=== PATIENT | female | born 1980 | race Caucasian/White ===

== ENCOUNTER → 2018-06-06 16:08 | Outpatient (CLI) | payer OTHER, SELFPAY | PROVIDERS: Family Provider Family Medicine; PCP Family Medicine; Referring Provider Family Medicine; Visit Provider Family Medicine | DX: R30.0 Dysuria (principal) | CPT/HCPCS: 87086 ==

== ENCOUNTER → 2018-06-07 07:02 | Outpatient (CLI) | payer OTHER, SELFPAY ==
[2018-06-07 10:59] LABS: Anion Gap 6 (5-15); BUN 11 mg/dL (7-18); BUN/Creat Ratio 15.2 RATIO (10-20); Calcium,Total 8.7 mg/dL (8.5-10.1); Chloride 108 mmol/L (98-107); Cholesterol 187 mg/dL (200); Creatinine, Serum 0.73 mg/dL (0.55-1.02); EST Glomerular Filtration Rate 94 mL/min (>60); Est Glom Filt Rate - Afr Amer 114 mL/min (>60); Glucose 77 mg/dL (74-106); High Density Lipoprotein 60 mg/dL; Potassium 4.2 mmol/L (3.5-5.1); Sodium Level 143 mmol/L (136-145); Thyroid Stim Hormone (TSH) 1.05 uIU/mL (0.358-3.74); Triglycerides 64 mg/dL; Very Low Density Lipoprotein 13 mg/dL (5-40)
[2018-06-07 11:01] LABS: Vitamin D,25 Hydroxy 41.1 ng/mL (29.95-100.01)
== END ==
PROVIDERS: Family Provider Family Medicine; PCP Family Medicine; Referring Provider Family Medicine; Visit Provider Family Medicine
DX: Z00.00 Encounter for general adult medical examination without abnormal findings (principal)
CPT/HCPCS: 36415; 80048; 80061; 82306; 84443

== ENCOUNTER → 2018-08-20 12:07 | Outpatient (CLI) | payer OTHER, SELFPAY ==
--- NOTE | 2018-08-20 12:09 | BI_ITS ---
MAMMOGRAPHY - BILATERAL SCREENING REASON FOR EXAM: Female, 38 years old. Routine annual screening examination. PERTINENT HISTORY: Aunt with breast cancer. Bilateral breast implants. TECHNIQUE: Digital bilateral breast giulia (3D mammographic acquisition) in the CC and MLO projections. 2-D mediolateral oblique (MLO) and craniocaudad (CC) views of both breasts were obtained. CAD: Full Field Digital Mammography with Computer Added Detection was performed. COMPARISON: Comparison is made with prior study dated March 31, 2015. FINDINGS: Breast Composition: The breasts are extremely dense, which lowers the sensitivity of mammography. There are no dominant masses or suspicious calcifications. Stable appearance of the bilateral breast implants. No other significant abnormalities are identified. There has been no significant change since the prior study. BI/SCREENING MAMM (CAD), BILAT IMPRESSION: Stable bilateral screening mammogram. Yearly follow-up mammogram recommended. (A) ASSESSMENT CATEGORY: BIRADS Category 2: Benign. A letter regarding these results will be sent to the patient by the facility within 30 days. Approximately 10% of breast cancers are not detected by mammography. A normal mammogram should not delay biopsy of a clinically suspicious abnormality. [id number] Electronically Signed: Valente Soares, at 13:56 EST , Service support ,
== END ==
PROVIDERS: Family Provider Family Medicine; PCP Family Medicine; Visit Provider Family Medicine
DX: Z12.31 Encounter for screening mammogram for malignant neoplasm of breast (principal)
CPT/HCPCS: 77063; 77067

== ENCOUNTER 2019-05-29 11:16 | Emergency (ER) | payer OTHER, SELFPAY ==
[2019-05-29 11:17] VITALS: BP 133/93; PULSE 83; RESP 16; TEMP 36.7; O2SAT 98; BMI 22.1
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
== END 2019-05-29 12:32 | disposition home or self-care (01) ==
PROVIDERS: Emergency Provider Emergency Medicine; Family Provider Family Medicine; PCP Family Medicine
DX: S52.571A Other intraarticular fracture of lower end of right radius, initial encounter for closed fracture (principal); F32.9 Major depressive disorder, single episode, unspecified; Z79.899 Other long term (current) drug therapy; V53.5XXA Driver of pick-up truck or van injured in collision with car, pick-up truck or van in traffic accident, initial encounter; Y93.I9 Activity, other involving external motion; Y92.410 Unspecified street and highway as the place of occurrence of the external cause; Y99.8 Other external cause status
CPT/HCPCS: 29125; 73090; 73110; 99284

== ENCOUNTER → 2019-06-13 07:19 | Outpatient (CLI) | payer OTHER, SELFPAY ==
[2019-05-29 11:17] VITALS: BMI 22.1
[2019-06-13 11:14] LABS: Cholesterol 211 mg/dL (200); High Density Lipoprotein 59 mg/dL; Triglycerides 98 mg/dL; Very Low Density Lipoprotein 20 mg/dL (5-40)
[2019-06-13 11:22] LABS: Hemoglobin A1c 5.5 % (4.2-6.3)
== END ==
PROVIDERS: Family Provider Family Medicine; PCP Family Medicine; Referring Provider Nurse Practitioner Family; Visit Provider Nurse Practitioner Family
DX: Z00.00 Encounter for general adult medical examination without abnormal findings (principal)
CPT/HCPCS: 36415; 80061; 83036

== ENCOUNTER 2019-07-12 14:57 | Emergency (ER) | payer OTHER, SELFPAY ==
[2019-07-12 14:57] VITALS: BP 131/77; PULSE 74; RESP 16; TEMP 36.5; O2SAT 99; BMI 20.5
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
== END 2019-07-12 16:12 | disposition home or self-care (01) ==
LOC: ED 15:42
PROVIDERS: Emergency Provider Emergency Medicine; PCP Family Medicine
DX: S52.501D Unspecified fracture of the lower end of right radius, subsequent encounter for closed fracture with routine healing (principal); W01.0XXD Fall on same level from slipping, tripping and stumbling without subsequent striking against object, subsequent encounter
CPT/HCPCS: 73110; 99282

== ENCOUNTER 2019-08-19 13:00 | Outpatient (RCR) | payer OTHER, SELFPAY ==
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
--- NOTE | 2019-10-25 09:46 | HP.OTDCSUM_ITS ---
It has been my pleasure to treat DEYSI HAGAN under orders from SURI MELCHOR, for the diagnosis of right closed fx wrist /sprain right DRUJ for a total of 6 visit(s). Please see the following information for a summary of their discharge status. % Improvement: 90 Objective/Function: wrist 65/55. right forearm supination 75*. left principal java developer strength 55# a increase from 35#. right lateral pinch 8# a increase from 4#. right tripod pinch 10# a increase from 2# Patient Goals: Regain Mobility, Regain Strength, Use Hand/Wrist/Arm Normally Again Goal:: PT will demo an increase in principal java developer strength by 20# to increase independent with basic occupations of daily living to return pt to PLOF by D/C. Pt will demo an increase in lateral and tripod pinch by 2# to increase pts independent with opening baggies, containers at PLOF by D/C. Goal:: Pt will demo an increase in wrist ROM equal to unaffected wrist to return pt to PLOF with grooming, dressing and home mtg tasks by D/C. pt will demo full right forearm sup/pron to increase pts ind.wtih ADLs and work tasks by d/c. Goal:: Pt will report pain no greater than 1/10 with use of affected hand with BADLs and IADLs by d/c. Plan: D/C with [facility] If there are questions or concerns regarding this patient's occupational therapy, please fell free to call me at [phone]. Thank you for the referral of this patient. Sincerely, Justine Madison, OTR/L, CHT
== END 2019-08-19 19:00 | disposition home or self-care (01) ==
LOC: OT 13:00
PROVIDERS: PCP Family Medicine
DX: S62.101D Fracture of unspecified carpal bone, right wrist, subsequent encounter for fracture with routine healing (principal); S63.591D Other specified sprain of right wrist, subsequent encounter
CPT/HCPCS: 97035; 97110; 97140; 97166; 97530

== ENCOUNTER → 2019-11-24 15:31 | Outpatient (CLI) | payer OTHER, SELFPAY ==
--- NOTE | 2019-11-24 15:32 | BI_ITS ---
MAMMOGRAPHY - BILATERAL SCREENING REASON FOR EXAM: Female, 39 years old. Routine annual screening examination. PERTINENT HISTORY: Aunt with breast cancer. Milky discharge. Bilateral implants. TECHNIQUE: Digital bilateral breast cesar (3D mammographic acquisition) in the CC and MLO projections. 2-D mediolateral oblique (MLO) and craniocaudad (CC) views of both breasts were obtained. CAD: Full Field Digital Mammography with Computer Added Detection was performed. COMPARISON: Comparison is made with prior examination August 20, 2018 and March 31, 2015. FINDINGS: Breast Composition: The breasts are extremely dense, which lowers the sensitivity of mammography. There are no dominant masses or suspicious calcifications. Stable appearance of the bilateral breast implants No other significant abnormalities are identified. There has been no significant change since the prior study. BI/SCREEN MAMM (CAD) W/CESAR BILAT IMPRESSION: Stable bilateral screening mammogram. Yearly follow-up mammogram recommended. (A) ASSESSMENT CATEGORY: BIRADS Category 2: Benign. A letter regarding these results will be sent to the patient by the facility within 30 days. Approximately 10% of breast cancers are not detected by mammography. A normal mammogram should not delay biopsy of a clinically suspicious abnormality. [id number] Electronically Signed: Valente Soares, at 8:11 EDT , Service support ,
== END ==
PROVIDERS: PCP Family Medicine; Referring Provider Family Medicine; Visit Provider Family Medicine
DX: Z12.31 Encounter for screening mammogram for malignant neoplasm of breast (principal)
CPT/HCPCS: 77063; 77067

== ENCOUNTER → 2020-04-05 | Outpatient (CLI) | payer OTHER, SELFPAY | END | disposition home or self-care (01) | LOC: MFPLAB 16:43 | PROVIDERS: PCP Family Medicine; Visit Provider Family Medicine | DX: Z20.828 Contact with and (suspected) exposure to other viral communicable diseases (principal) | CPT/HCPCS: 87635; U0003 ==

== ENCOUNTER → 2020-09-29 12:30 | Outpatient (CLI) | payer OTHER, SELFPAY ==
[2020-09-29 15:10] LABS: Absolute Lymphocyte Count 1.69 X10^3/uL (0.83-4.51); Absolute Neutrophil Count 3.7 X10^3/uL (2.0-7.7); Basophil# 0.02 X10^3/uL; Basophil% 0.3 % (0-1); Eosinophil# 0.03 X10^3/uL; Eosinophils% 0.5 % (0-5); Hematocrit 42.5 % (37-47); Hemoglobin 13.4 g/dL (12.0-15.0); Lymphocyte # 1.69 X10^3/ul (0.83-4.51); Lymphocyte % 29.1 % (19-41); Mean Corp Hgb Conc 31.5 g/dL (32-36); Mean Corpuscular Hgb 30.5 pg (27.0-32.0); Mean Corpuscular Volume 96.8 fL (81-99); Mean Platelet Vol. 11.1 fl (6.2-12.0); Monocyte# 0.39 X10^3/uL; Monocyte% 6.7 % (0-10); NRBC Flagged by Analyzer 0 % (0-5); Neutrophil # 3.67 X10^3/uL (2.7-7.7); Neutrophil % 63.2 % (47-70); Platelet Count 294 K/mm3 (150-450); RBC Distribution Width SD 46.9 fl (35.1-43.9); Red Blood Count 4.39 M/mm3 (4.2-5.4); White Blood Count 5.8 K/mm3 (4.4-11.0)
[2020-09-29 15:32] LABS: Anion Gap 3 (5-15); BUN 15 mg/dL (7-18); BUN/Creat Ratio 24.6 RATIO (10-20); Calcium,Total 9.1 mg/dL (8.5-10.1); Chloride 105 mmol/L (98-107); Creatinine, Serum 0.61 mg/dL (0.55-1.02); EST Glomerular Filtration Rate 114 mL/min (>60); Est Glom Filt Rate - Afr Amer 138 mL/min (>60); Glucose 85 mg/dL (74-106); Potassium 4.3 mmol/L (3.5-5.1); Sodium Level 135 mmol/L (136-145); Thyroid Stim Hormone (TSH) 0.74 uIU/mL (0.358-3.74)
== END ==
PROVIDERS: PCP Family Medicine; Referring Provider Family Medicine; Visit Provider Family Medicine
DX: R53.83 Other fatigue (principal)
CPT/HCPCS: 36415; 80048; 84443; 85025

== ENCOUNTER → 2021-11-23 | Outpatient (CLI) | payer OTHER, SELFPAY ==
[2021-11-23 10:39] LABS: Vitamin D,25 Hydroxy 50.5 ng/mL
[2021-11-23 10:46] LABS: Anion Gap 5 (5-15); BUN 23 mg/dL (7-18); Calcium,Total 8.9 mg/dL (8.5-10.1); Chloride 103 mmol/L (98-107); Cholesterol 180 mg/dL (200); EST Glomerular Filtration Rate 97 mL/min (>60); Est Glom Filt Rate - Afr Amer 118 mL/min (>60); Glucose 89 mg/dL (74-106); High Density Lipoprotein 61 mg/dL; Potassium 3.7 mmol/L (3.5-5.1); Sodium Level 138 mmol/L (136-145); Triglycerides 41 mg/dL; Very Low Density Lipoprotein 8 mg/dL (5-40)
== END | disposition home or self-care (01) ==
LOC: MFPLAB 09:27
PROVIDERS: PCP Family Medicine; Referring Provider Family Medicine; Visit Provider Family Medicine
DX: Z00.00 Encounter for general adult medical examination without abnormal findings (principal)
CPT/HCPCS: 36415; 80048; 80061; 82306

== ENCOUNTER → 2023-07-23 | Outpatient (CLI) | payer OTHER, SELFPAY ==
--- OUTSIDE RECORDS SUMMARY | 2023-07-23 10:01 | XMS RPT_ITS | CCD ---
Author Name Unknown Address [address] [place] [address] Organization [facility] Care Team Providers Care Product Applications Scientist Name Role Phone Janay Linda Unavailable Unavailable Medications Completed/Discontinued Medications Medication Drug Class(es) Dates Sig (Normalized) Sig (Original) Drug Treatment Unknown - unknown (1 source) No information available. Problems Problem Classification Problem Date Documented Da te Episodic/Chronic Unclassified (1 source) No current problems or disability 02-02-2017 Results Test Name Value Interpretation Reference Range Facil ity Plan of Treatment Date Care Activity Detail Author Start: 02-05-2017 End: 02-05-2017 Appointment Appointment [facility] Work Phone: Summary Purpose Family History No Family History Records FoundNo Family History Records Found Advance Directives No Advanced Directives Records FoundNo Advanced Directives Records Found Additional Source Comments INFORMATION SOURCE (unrecogn ized section and content) DATE CREATED AUTHOR AUTHOR'S AUGUSTO ATION 09/01/2019 [facility] FOR RECORDS PERTAINING TO PATIENTS WHO ARE OR HAVE BEEN ENROLLED IN A CHEMICAL DEPENDENCY/SUBSTANCEABUSE PROGRAM, SOME INFORMATION MAY BE OMITTED. This clinical summary was aggregated from multiple sources. Caution should be exercised in using it in the provision of clinical care. This summary normalizes information from multiple sources, and as a consequence, information in this document may materially change the coding, format and clinical context of patient data. In addition, data may be omitted in some cases. CLINICAL DECISIONS SHOULD BE BASED ON THE PRIMARY CLINICAL RECORDS. [employer] provides no warranty or guarantee of the accuracy or completeness of information in this document.
[2023-07-23 14:44] LABS: Anion Gap 4 (5-15); BUN 21 mg/dL (7-18); BUN/Creat Ratio 35.5 RATIO (10-20); Calcium,Total 9.1 mg/dL (8.5-10.1); Chloride 101 mmol/L (98-107); Cholesterol 175 mg/dL (200); Creatinine, Serum 0.59 mg/dL (0.55-1.02); EST Glomerular Filtration Rate 117 mL/min (>60); Est Glom Filt Rate - Afr Amer 141 mL/min (>60); Follicle Stimulating Hormone 9.4 mIU/mL; Glucose 84 mg/dL (74-106); High Density Lipoprotein 72 mg/dL; Luteinizing Hormone 47.2 mIU/mL; Sodium Level 135 mmol/L (136-145); Triglycerides 41 mg/dL; Very Low Density Lipoprotein 8 mg/dL (5-40)
[2023-07-27 18:08] LABS: Estrogen, Total, Serum 567 pg/mL (.)
== END | disposition home or self-care (01) ==
LOC: MFPLAB 09:39
PROVIDERS: PCP Family Medicine; Visit Provider Family Medicine
DX: Z00.00 Encounter for general adult medical examination without abnormal findings (principal); N95.1 Menopausal and female climacteric states
CPT/HCPCS: 36415; 80048; 80061; 82672; 83001; 83002

== ENCOUNTER → 2024-11-04 | Outpatient (CLI) | payer MEDICAID, SELFPAY ==
--- NOTE | 2024-11-04 15:06 | BI_ITS ---
EXAM: SCREENING MAMM (CAD), BILAT DATE: 11/04/2024 CLINICAL HISTORY: F, Age 44 y/o , SCREENING BREAST CANCER RISK ASSESSMENT: Not reported TECHNIQUE: Bilateral screening digital breast tomosynthesis with 2D and 3D images. Computer aided detection. COMPARISON: None available FINDINGS: TISSUE DENSITY: The breast tissue is extremely dense which lowers the sensitivity of mammography. Bilateral Breast Mammographic Findings: Right breast: There is focal asymmetry in the upper-outer right breast. Left breast: No suspicious masses, calcifications or other abnormalities are identified. BI/SCREENING MAMM (CAD), BILAT IMPRESSION: OVERALL FINAL ASSESSMENT: BIRADS 0 Incomplete: Need additional imaging evaluati on and/or prior mammograms for comparison. RECOMMENDATION: Incomplete: Need additional imaging evaluation with diagnostic right breast javed mogram and ultrasound. A letter with findings and recommendations will be mailed to the patient. Reading Location: [id number]
== END | disposition home or self-care (01) ==
LOC: OPBI 15:04
PROVIDERS: PCP Family Medicine; Referring Provider Family Medicine; Visit Provider Family Medicine
DX: Z12.31 Encounter for screening mammogram for malignant neoplasm of breast (principal)
CPT/HCPCS: 77067

== ENCOUNTER → 2024-11-11 | Outpatient (CLI) | payer MEDICAID, SELFPAY ==
--- NOTE | 2024-11-11 08:57 | US_ITS ---
PROCEDURE: BREAST LIMITED UNILATERAL 11/11/2024 REASON FOR EXAM: Palpable lump in the upper-outer quadrant of the right breast. TECHNIQUE: Targeted right breast ultrasound. COMPARISON: Prior mammogram dated November 04, 2024. FINDINGS: Right breast ultrasound was targeted to the lateral upper aspect of the right breast.. The breast tissue appears sonographically normal. No cyst, solid mass, or suspicious shadowing. Dense fibroglandular tissue. No sonographic abnormality is seen. US/Breast Limited Unilateral IMPRESSION: Dense fibroglandular tissue. No sonographic abnormality is seen. Follow-up code: Routine Follow-up Reading Location: [place] [id number]
--- NOTE | 2024-11-11 08:57 | BI_ITS ---
EXAM: DIAG MAMM W/CAD, UNILAT 11/11/2024 CLINICAL HISTORY: F, Age 44 y/o , FOCAL ASYMMETRY TECHNIQUE: Unilateral diagnostic digital breast tomosynthesis with 2D and 3D images. Computer aided detection. COMPARISON: Prior exam(s) dated prior mammogram dated November 04, 2024 and prior sonogram done earlier in the day.. FINDINGS: TISSUE DENSITY: The breast tissue is extremely dense which lowers the sensitivity of mammography. Bilateral Breast Mammographic Findings: No significant masses, calcifications or other abnormalities are identified. Sonographic correlation recommended. BI/DIAG MAMM W/CAD, UNILAT IMPRESSION: OVERALL FINAL ASSESSMENT: BIRADS 0 Incomplete: Need additional imaging evaluati on and/or prior mammograms for comparison.. RECOMMENDATION: Sonographic correlation recommended. A letter with findings and recommendations will be mailed to the patient. Reading Location: [place] [id number]
== END | disposition home or self-care (01) ==
LOC: OPBI 08:55
PROVIDERS: PCP Family Medicine; Referring Provider Family Medicine; Visit Provider Family Medicine
DX: N64.89 Other specified disorders of breast (principal)
CPT/HCPCS: 76642; 77065

== ENCOUNTER → 2025-02-02 | Outpatient (CLI) | payer MEDICAID, SELFPAY ==
--- OUTSIDE RECORDS SUMMARY | 2025-02-02 07:16 | XMS RPT_ITS | CCD ---
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 () Reason For Exam rt wrist pain Report CLINICAL INFORMATION: Right wrist pain. Prior trauma.. Right wrist: COMPARISON: None at this institution. PA, oblique and lateral views demonstrate a subacute appearing transverse fracture of the distal radial metaphysis with mild sclerosis on both sides of the fracture consistent with early healing. There is a longitudinally oriented fracture of the lateral aspect of the distal radial diaphysis without intra-articular extension. The fracture fragments are in near-anatomic position and alignment. The joints are well-maintained. The carpal bones are in normal alignment. IMPRESSION: Healing subacute comminuted fracture of the distal radius with fracture fragments in near-anatomic position and alignment as described.. Report Dictated on Final Dictating Physician: MD ALARCON HARLAN Signed Date and Time: 06/26/2019 3:04 pm Signed by: MD ALARCON HARLAN Transcribed Date and Time: 06/26/2019 3:05 [facility] Vital Signs Date Time Vital Sign Value Performing Clinician Jl palomino 01-27-2025 08:08-0400 Body height 160.[address] Nicko Hatch MD Work Phone: [facility] 01-27-2025 08:08-0400 Body mass index (BMI) [Ratio] 19.6 kg/m2 Dr. Nicko Hatch MD Work Phone: [phone])[phone] [address] 01-27-2025 08:08-0400 Body temperature 97.3 [degF] Dr. Nicko Hatch MD Work Phone: 0(878)[phone] [address] 01-27-2025 08:08-0400 Body weight 50.[address] Nicko Hatch MD Work Phone: 2(081)[phone] [address] 01-27-2025 08:08-0400 Diastolic blood pressure 60 mm[Hg] Dr. Nicko Hatch MD Work Phone: 2(957)[phone] [address] 01-27-2025 08:08-0400 Heart rate 72 /min Dr. Nicko Hatch MD Work Phone: [facility] 01-27-2025 08:08-0400 Respiratory rate 18 /min Dr. Nicko Hatch MD Work Phone: [phone] [place] [address] 01-27-2025 08:08-0400 SaO2% (BldA) [Mass fraction] 97 % Dr. Nicko Hatch MD Work Phone: [facility] 01-27-2025 08:08-0400 Systolic blood pressure 114 mm[Hg] Dr. Nicko Hatch MD Work Phone: [facility] Encounters Encounter Date Encounter Type Care Provider Facility Start: 01-27-2025 End: 01-27-[address] Adele Clements MD -[facility] Work Phone: Start: 01-27-2025 End: 01-27-[address] Nicko Hatch MD Work Phone: [facility] Start: 11-11-2024 End: 11-11-[address] Nicko Hatch MD Work Phone: [facility] Work Phone: Start: 11-11-2024 End: 11-11-[address] Nicko Hatch MD -[facility] Work Phone: Start: 11-11-2024 End: 11-11-2024 ambulatory Nicko Hatch Facility:[facility] Start: 11-04-2024 End: 11-04-[address] Nicko Hatch MD Work Phone: [facility] Work Phone: Start: 11-04-2024 End: 11-04-[address] Nicko Hatch MD -[facility] Work Phone: Start: 11-04-2024 End: 11-04-2024 ambulatory Nicko Hatch Facility:[facility] Start: 07-23-2023 End: 07-23-2023 ambulatory [facility] Work Phone: Start: 07-23-2023 End: 07-23-2023 Patient encounter procedure [facility] Start: 11-23-2021 End: 11-23-2021 Patient encounter procedure [facility] Procedures Date Procedure Procedure Detail Performing Clinician Start: 11-11-[address] Nicko lawson MD Work Phone: Start: 11-11-[address] Nicko Hatch MD Work Phone: Start: 11-04-2024 Screening mammograph y of bilateral breasts Dr. Nicko Hatch MD Work Phone: Plan of Treatment Date Care Activity Detail Author Start: 02-05-2017 End: 02-05-2017 Appointment Appointment [facility] Work Phone: Estrogen [Mass/volum e] in Serum or Plasma [facility] Immunizations Immunization Date Immunization Notes Care Provider Fa cility 07-07-2021 Covid (Moderna) Dr. Nicko singh MD Work Phone: [facility] 09-21-2020 Covid ([employer]) Dr. Nicko Hatch MD Work Phone: [facility] 06-06-2018 tetanus toxoid, redu yair diphtheria toxoid, and acellular pertussis vaccine, adsorbed Dr. Nicko Hatch MD Work Phone: [facility] Payers Date Payer Category Payer Self-pay [id number] 2024 Unknown [id number] 2013 [id number] Unknown [employer] DO NOT USE [id number] Unknown [id number] Unknown [id number] Social History Date Type Detail Facility Start: 07-12-2019 End: 07-12-2019 Tobacco smoking status NHIS Unknown if ever smoked [facility] Start: 1980 Sex Assigned At Female W [facility] Start: 07-12-2019 End: 01-27-2025 Tobacco smoking status NHIS Never smoked tobacco (finding) [facility] Radiology Diagnostic study note 11-11-2024 Note Date & Type Note Facility 11-11-2024 Radiology Diagnostic study note [facility] Services [address] [place] [address] Breast Limited Unilateral MR#: [id number] Acct: [id number] Name: DEYSI HAGAN Rep #: [id number] : 1980 F 44 From: Kevin Soares MD PCP: Dr. Nicko Hatch MD Status: REG C LI Study:Breast Limited Unilateral Date of Exam: 11/11/24 Exam# [id number] Ordering Dr: Nicko Hatch MD PROCEDURE: BREAST LIMITED UNILATERAL 11/11/2024 REASON FOR EXAM: Palpable lump in the upper-outer quadrant of the right breast. TECHNIQUE: Targeted right breast ultrasound. COMPARISON: Prior mammogram dated November 04, 2024. FINDINGS: Right breast ultrasound was targeted to the lateral upper aspect of the right breast.. The breast tissue appears sonographically normal. No cyst, solid mass, or suspicious shadowing. Dense fibroglandular tissue. No sonographic abnormality is seen. US/Breast Limited Unilateral IMPRESSION: Dense fibroglandular tissue. No sonographic abnormality is seen. Follow-up code: Routine Follow-up Reading Location: [place] [address] CC: Dr. 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 [facility] Evaluation note Note Date & Type Note Facility Evaluation note No assessment information availa ble [facility] Work Phone: Evaluation note Note Date & Type Note Facility Evaluation note Diagnosis Onset Date Resolution Encounter for screening for malignant neoplasm of colon noneactive January 27 8:03am Establishing care with new doctor, encounter for noneactive January 27 5 8:03am [facility] Work Phone: Reason for referral (narrative) Note Date & Type Note Facility Reason for referral (narrative) No reason for referral information available [facility] Work Phone: Summary Purpose Family History No Family History Records Found Relationship Condition Age at Onset Recorded Date/T josephine father Hypertension Unknown mother Hypertension Unknown Advance Directives No Advanced Directives Records Found Advance Directive Response Recorded Date/ Time Living Will No July 12 5:11pm Power of Clearing Supervisor No July 12, 2019 5:11pm Advance Directive Response Recorded Date/ Time Living Will No July 12 4:11pm Power of Clearing Supervisor No July 12, 2019 4:11pm Chief Complaint and Reason for Visit Chief Complaint Admit Date SCREENING November 04, 2024 3:04p m ABNORMAL MAMM November 11, 2024 8:13a m Chief Complaint Admit Date SCREENING November 04, 2024 3:04p m ABNORMAL MAMM November 11, 2024 8:13a m [employer]. [facility] - PPW SENT January 27 8:03am Reason for Visit Admit Date Encounter for screening for malignant ne oplasm of colon January 27, 2025 8:03am Establishing care with new doctorgaetano for January 27, 2025 8:03am Additional Source Comments INFORMATION SOURCE (unrecogn ized section and content) DATE CREATED AUTHOR 08/28/2019 [employer] DATE CREATED AUTHOR AUTHOR'S ORGANIZ ATION 09/01/2019 [employer] DATE CREATED AUTHOR AUTHOR'S ORGANIZ ATION [facility] Goals (unrecognized section and content) Goals may be documented in a n alternate sectionGoals may be documented in an alternate sectionGoals may be documented in an alternate sectionGoals may be documented in an alternate sectionGoals may be documented in an alternate section Care Teams (unrecognized sec tion and content) Team Status: Active Member Role Status Dates Dr. Nicko Hatch MD Family Provider Active Dr. Nicko Hatch MD Primary Care Provider Active Team Status: Inactive Member Role Status Dates Dr. Nicko Hatch MD Primary Care Provider, Attending Provider Active Team Status: Active Member Role Status Dates Dr. Nicko Hatch MD Primary Care Provider Active Team Status: Inactive Member Role Status Dates Dr. Nicko Hatch MD Primary Care Provider Active Start: November 04, 2024 End: November 04, 2024 Dr. Nicko Hatch MD Attending Provider Active Start: November 04, 2024 End: November 04, 2024 Dr. Nicko Hatch MD Referring Provider Active Start: November 04, 2024 End: November 04, 2024 Team Status: Active Member Role Status Dates Dr. Nicko Hatch MD Primary Care Provider Active Start: November 11, 2024 Dr. Nicko Hatch MD Attending Provider Active Start: November 11, 2024 Dr. Nicko Hatch MD Referring Provider Active Start: November 11, 2024 Team Status: Inactive Member Role Status Dates Dr. Nicko Hatch MD Primary Care Provider Active Start: November 11, 2024 End: November 11, 2024 Dr. Nicko Hatch MD Attending Provider Active Start: November 11, 2024 End: November 11, 2024 Dr. Nicko Hatch MD Referring Provider Active Start: November 11, 2024 End: November 11, 2024 Team Status: Active Member Role/Relationship Status Dates Dr. Nicko Hatch MD Primary Care Provider Active Team Status: Inactive Member Role/Relationship Status Dates Dr. Nicko Hatch MD Primary Care Provider Active Start: November 04, 2024 End: November 04, 2024 Dr. Nicko Hatch MD Attending Provider Active Start: November 04, 2024 End: November 04, 2024 Dr. Nicko Hatch MD Referring Provider Active Start: November 04, 2024 End: November 04, 2024 Team Status: Inactive Member Role/Relationship Status Dates Dr. Nicko Hatch MD Primary Care Provider Active Start: November 11, 2024 End: November 11, 2024 Dr. Nicko Hatch MD Attending Provider Active Start: November 11, 2024 End: November 11, 2024 Dr. Nicko Hatch MD Referring Provider Active Start: November 11, 2024 End: November 11, 2024 Team Status: Inactive Member Role/Relationship Status Dates Dr. Nicko Hatch MD Primary Care Provider Active Start: January 27, 2025 End: January 27, 2025 Dr. Nicko Hatch MD Referring Provider Active Start: January 27, 2025 End: January 27, 2025 Dr. Adele Clements MD Attending Provider Active Start: January 27, 2025 End: January 27, 2025 FOR RECORDS PERTAINING TO PATIENTS WHO ARE [...] BE BASED ON THE PRIMARY CLINICAL RECORDS. [facility] [employer] [facility] provides no warranty or guarantee of the accuracy or completeness of information in this document.
[2025-02-02 10:28] LABS: Hematocrit 39.4 % (37-47); Hemoglobin 13.2 g/dL (12.0-15.0); Immature Granulocytes Count 0.010 X10^3/uL (0.0-0.0); Mean Corp Hgb Conc 33.5 g/dL (32-36); Mean Corpuscular Volume 96.6 fL (81-99); Mean Platelet Vol. 11.0 fl (6.2-12.0); NRBC Flagged by Analyzer 0 % (0-5); Platelet Count 291 K/mm3 (150-450); RBC Distribution Width CV 13.8 % (11.6-14.6); RBC Distribution Width SD 49.1 fl (35.1-43.9); Red Blood Count 4.08 M/mm3 (4.2-5.4); White Blood Count 6.5 K/mm3 (4.4-11.0)
[2025-02-02 10:57] LABS: AST(SGOT) 30 U/L (<=31); Alanine Aminotransfer ALT/SGPT 21 U/L (<=34); Albumin, Serum 4.2 g/dL (3.5-5.0); Alkaline Phosphatase 77 U/L (35-104); Anion Gap 11 (5-15); BUN 10 mg/dL (4-19); BUN/Creat Ratio 14.1 RATIO (10-20); Calcium,Total 9.4 mg/dL (7.6-11.0); Carbon Dioxide 25.7 mmol/L (21.0-32.0); Chloride 104 mmol/L (98-108); Globulin 2.4 g/dL (2.2-4.2); Glucose 85 mg/dL (70-99); Potassium 4.1 mmol/L (3.3-5.1); Vitamin D,25 Hydroxy 53.6 ng/mL (30-100)
[2025-02-02 12:02] LABS: BETA-HYDROXYBUTYRATE 0.1 mmol/L (0.0-0.3)
== END | disposition home or self-care (01) ==
LOC: MTLAB 07:13
PROVIDERS: PCP Internal Medicine; Referring Provider Internal Medicine; Visit Provider Internal Medicine
DX: F41.9 Anxiety disorder, unspecified (principal); F32.A Depression, unspecified; E16.2 Hypoglycemia, unspecified; M81.0 Age-related osteoporosis without current pathological fracture
CPT/HCPCS: 36415; 80053; 82010; 82306; 83036; 83525; 84305; 84681; 85025

== ENCOUNTER → 2025-02-04 | Outpatient (CLI) | payer MEDICAID, SELFPAY ==
--- NOTE | 2025-02-04 06:56 | BD_ITS ---
PROCEDURE: DEXA BONE DENSITY STUDY 02/04/2025 REASON FOR EXAM: OSTEOPOROSIS F, age 44 y/o . Postmenopausal. TECHNIQUE: DEXA BONE DENSITY STUDY COMPARISON: Prior study dated January 13, 2015. FINDINGS: BMD and T-SCORES Lumbar spine: 0.810 g/cm2, T-score -2.2 Levels: L1 through L4 Change from prior: Loss of 7.3%. Left femoral neck: 0.642 g/cm2, T-score -1.9 Femoral neck comparison data not recommended for monitoring change. Left total hip: 0.724 g/cm2, T-score -1.8 Change from prior: Improvement of 14.8%. Right femoral neck: 0.607 g/cm2, T-score -2.2 Femoral neck comparison data not recommended for monitoring change. Right total hip: 0.683 g/cm2, T-score -2.1 Change from prior: Improvement of 14.9%. The World Health Organization has defined the following categories based on bone density: Normal bone density: T-score equal to or greater than -1.0 Osteopenia: T-score between -1.0 and -2.5 Osteoporosis: T-score equal to or less than -2.5 The patient does meet the pharmacological treatment recommendations for prevention of osteoporosis. BD/Dexa Bone Density Study IMPRESSION: OSTEOPENIA. Recommend follow-up as clinically warranted. Reading Location: [id number]
--- OUTSIDE RECORDS SUMMARY | 2025-02-04 06:56 | XMS RPT_ITS | CCD ---
Author Organization [facility] Care Team Providers Care Environmental Studies Faculty Member Name Role Phone EligioerickodyJanay Unavailable Unavailable Mamie HUERTA, Dr. Maharaj Primary Care Provider Mamie HUERTA, Dr. Maharaj Attending Provider Mamie HUERTA, Dr. Maharaj Referring Provider [phone] Starr HUERTA, Dr. Angulo Attending Provider Nicko Hatch Primary Care Unavailable Nicko Hatch Attending Unavailable Nicko Hatch Referring Unavailable Adele Clements Primary Care Unavailable Adele Clements Attending Unavailable Adele Clements Referring Unavailable Starr, Adele Referring Unavailable Adele Clements Primary Care Unavailable Adele Clements Attending Unavailable Nicko Hatch Referring Unavailable Nicko Hatch Primary Care Unavailable Adele Clements Attending Unavailable Nicko Hatch Primary Care Unavailable Nicko Hatch Attending Unavailable Nicko Hatch Referring Unavailable Medications Current Medications Medication Drug [...] specified disorders of breast] Onset: 11-15-2024 Episodic Osteoporosis (1 source) Age-related osteoporosis without current pathological fracture; Translations: [Age-related osteoporosis without current pathological fracture] Onset: 02-02-2025 Chronic Other screening for suspected conditions (not mental disorders or infectious disease) (2 sources) Patient encounter status; Translations: [Encounter for screening for malignant neoplasm of colon] Onset: 11-11-2024 01-27-2025 Episodic Unclassified (1 source) No current problems or disability 02-02-2017 Results Test Name Value Interpretation Reference Range Facility Beta-Hydroxbytyrateon 2024 BETA-HYDROXYBUT 0.1 mmol/L Normal 0.0-0.3 [facility] Comment on above: Performed By: #### L 100.0100, L501.6901, L500.4050, L501.9985, L506.1001 #### [facility] [address] [place], [address] CBC W/Diff, Automatedon 01-16 Absolute Lymph 1.12 X10 3/uL Normal 0.83-4.51 [facility] Comment on above: Performed By: #### L 100.0100, L501.6901, L500.4050, L501.9985, L506.1001 #### [facility] [address] [place], [address] Absolute Neut 4.4 X10 3/uL Normal 2.0-7.7 [facility] Comment on above: Performed By: #### L 100.0100, L501.6901, L500.4050, L501.9985, L506.1001 #### [facility] [address] [place], [address] Basophils/100 WBC (Bld) 0.6 % Normal 0-1 [facility] Comment on above: Performed By: #### L 100.0100, L501.6901, L500.4050, L501.9985, L506.1001 #### [facility] [address] [place], [address] Eosinophils/100 WBC (Bld) 6.2 % High 0-5 [facility] Comment on above: Performed By: #### L 100.0100, L501.6901, L500.4050, L501.9985, L506.1001 #### [facility] [address] [place], [address] Erythrocyte distribution width (RBC) [Ratio] 13.8 % Normal 11.6-14.6 [facility] Comment on above: Performed By: #### L 100.0100, L501.6901, L500.4050, L501.9985, L506.1001 #### [facility] [address] [place], [address] Hematocrit (Bld) [Volume fraction] 39.4 % Normal 37-47 [facility] Comment on above: Performed By: #### L 100.0100, L501.6901, L500.4050, L501.9985, L506.1001 #### [facility] [address] [place], [address] Hemoglobin (Bld) [Mass/Vol] 13.2 g/dL Normal 12.0-15.0 [facility] Comment on above: Performed By: #### L 100.0100, L501.6901, L500.4050, L501.9985, L506.1001 #### [facility] [address] [place], [address] IG% 0.200 Normal 0.0-0.9 [facility] Comment on above: Result Comment: IG% - Immature Granulocytes (promyelocytes, myelocytes and metamyelocytes) > 1% indicates that a LEFT SHIFT is Present. Performed By: #### L 100.0100, L501.6901, L500.4050, L501.9985, L506.1001 #### [facility] [address] [place], [address] Lymphocytes/100 WBC (Bld) 17.3 % Low 19-41 [facility] Comment on above: Performed By: #### L 100.0100, L501.6901, L500.4050, L501.9985, L506.1001 #### [facility] [address] [place], [address] MCH (RBC) [Entitic mass] 32.4 pg High 27.0-32.0 [facility] Comment on above: Performed By: #### L 100.0100, L501.6901, L500.4050, L501.9985, L506.1001 #### [facility] [address] [place], [address] MCHC (RBC) [Mass/Vol] 33.5 g/dL Normal 32-36 [facility] Comment on above: Performed By: #### L 100.0100, L501.6901, L500.4050, L501.9985, L506.1001 #### [facility] [address] [place], [address] MCV (RBC) [Entitic vol] 96.6 fL Normal 81-99 [facility] Comment on above: Performed By: #### L 100.0100, L501.6901, L500.4050, L501.9985, L506.1001 #### [facility] [address] [place], [address] Monocytes/100 WBC (Bld) 7.9 % Normal 0-10 [facility] Comment on above: Performed By: #### L 100.0100, L501.6901, L500.4050, L501.9985, L506.1001 #### [facility] [address] [place], [address] Neutrophils/100 WBC (Bld) 67.8 % Normal 47-70 [facility] Comment on above: Performed By: #### L 100.0100, L501.6901, L500.4050, L501.9985, L506.1001 #### [facility] [address] [place], [address] Nucleated RBC (Bld) [#/Vol] 0 10*3/uL Normal 0-5 [facility] Comment on above: Performed By: #### L 100.0100, L501.6901, L500.4050, L501.9985, L506.1001 #### [facility] [address] [place], [address] Platelet mean volume (Bld) [Entitic vol] 11.0 fL Normal 6.2-12.0 [facility] Comment on above: Performed By: #### L 100.0100, L501.6901, L500.4050, L501.9985, L506.1001 #### [facility] [address] [place], [address] Platelets (Bld) [#/Vol] 291 10*3/uL Normal 150-450 [facility] Comment on above: Performed By: #### L 100.0100, L501.6901, L500.4050, L501.9985, L506.1001 #### [facility] [address] [place], [address] RBC (Bld) [#/Vol] 4.08 10*6/uL Low 4.2-5.4 [facility] Comment on above: Performed By: #### L 100.0100, L501.6901, L500.4050, L501.9985, L506.1001 #### [facility] [address] [place], [address] RDW SD 49.1 fl High 35.1-43.9 [facility] Comment on above: Performed By: #### L 100.0100, L501.6901, L500.4050, L501.9985, L506.1001 #### [facility] [address] [place], [address] WBC (Bld) [#/Vol] 6.5 10*3/uL Normal 4.4-11.0 [facility] Comment on above: Performed By: #### L 100.0100, L501.6901, L500.4050, L501.9985, L506.1001 #### [facility] [address] [place], [address] Comprehensive Metabolic [facility] 02-02-2025 Albumin [Mass/Vol] 4.2 g/dL Normal 3.5-5.0 [facility] Comment on above: Performed By: #### L 100.0100, L501.6901, L500.4050, L501.9985, L506.1001 #### [facility] [address] [place], [address] Albumin/Globulin [Mass ratio] 1.7 {ratio} Normal 0.9-2.4 [facility] Comment on above: Performed By: #### L 100.0100, L501.6901, L500.4050, L501.9985, L506.1001 #### [facility] [address] [place], [address] ALK PHOS 77 U/L Normal 35-104 [facility] Comment on above: Performed By: #### L 100.0100, L501.6901, L500.4050, L501.9985, L506.1001 #### [facility] [address] [place], [address] ALT [Catalytic activity/Vol] 21 U/L Normal <=34 [facility] Comment on above: Performed By: #### L 100.0100, L501.6901, L500.4050, L501.9985, L506.1001 #### [facility] [address] [place], [address] AST [Catalytic activity/Vol] 30 U/L Normal <=31 [facility] Comment on above: Performed By: #### L 100.0100, L501.6901, L500.4050, L501.9985, L506.1001 #### [facility] [address] [place], [address] Bilirubin [Mass/Vol] 0.49 mg/dL Normal 0.00-1.30 [facility] Comment on above: Performed By: #### L 100.0100, L501.6901, L500.4050, L501.9985, L506.1001 #### [facility] [address] [place], [address] BUN/CRE 14.1 RATIO Normal 10-20 [facility] Comment on above: Performed By: #### L 100.0100, L501.6901, L500.4050, L501.9985, L506.1001 #### [facility] [address] [place], [address] Calcium [Mass/Vol] 9.4 mg/dL Normal 7.6-11.0 [facility] Comment on above: Performed By: #### L 100.0100, L501.6901, L500.4050, L501.9985, L506.1001 #### [facility] [address] [place], [address] Chloride [Moles/Vol] 104 mmol/L Normal 98-108 [facility] Comment on above: Performed By: #### L 100.0100, L501.6901, L500.4050, L501.9985, L506.1001 #### [facility] [address] [place], [address] CO2 [Moles/Vol] 25.7 mmol/L Normal 21.0-32.0 [facility] Comment on above: Performed By: #### L 100.0100, L501.6901, L500.4050, L501.9985, L506.1001 #### [facility] [address] [place], [address] Creatinine [Mass/Vol] 0.68 mg/dL Low 0.70-1.20 [facility] Comment on above: Performed By: #### L 100.0100, L501.6901, L500.4050, L501.9985, L506.1001 #### [facility] [address] [place], [address] GAP 11 Normal 5-15 [facility] Comment on above: Performed By: #### L 100.0100, L501.6901, L500.4050, L501.9985, L506.1001 #### [facility] [address] [place], [address] GFR/1.73 sq M.predicted among non-blacks MDRD (S/P/Bld) [Vol rate/Area] 109 mL/min/{1.73_m2} Normal >60 [facility] Comment on above: Result Comment: mL/m in/1.73m2 CKD-EPI Creatinine Equation (2020) Performed By: #### L 100.0100, L501.6901, L500.4050, L501.9985, L506.1001 #### [facility] [address] [place], [address] Globulin (S) [Mass/Vol] 2.4 g/dL Normal 2.2-4.2 [facility] Comment on above: Performed By: #### L 100.0100, L501.6901, L500.4050, L501.9985, L506.1001 #### [facility] [address] [place], [address] Glucose [Mass/Vol] 85 mg/dL Normal 70-99 [facility] Comment on above: Performed By: #### L 100.0100, L501.6901, L500.4050, L501.9985, L506.1001 #### [facility] [address] [place], [address] Potassium [Moles/Vol] 4.1 mmol/L Normal 3.3-5.1 [facility] Comment on above: Performed By: #### L 100.0100, L501.6901, L500.4050, L501.9985, L506.1001 #### [facility] [address] [place], [address] Sodium [Moles/Vol] 141 mmol/L Normal 133-145 [facility] Comment on above: Performed By: #### L 100.0100, L501.6901, L500.4050, L501.9985, L506.1001 #### [facility] [address] [place], [address] T PROT 6.6 g/dL Normal 5.9-8.4 [facility] Comment on above: Performed By: #### L 100.0100, L501.6901, L500.4050, L501.9985, L506.1001 #### [facility] [address] [place], [address] Urea nitrogen [Mass/Vol] 10 mg/dL Normal 4-19 [facility] Comment on above: Performed By: #### L 100.0100, L501.6901, L500.4050, L501.9985, L506.1001 #### [facility] [address] [place], [address] Hemoglobin A1con 02-02-2025 HbA1c (Bld) [Mass fraction] 4.9 % Normal <=5.6 [facility] Comment on above: Result Comment: Norm al < 5.7 % Prediabetic 5.7 - 6.4 % Diabetic >or= 6.5 % Please note range changes. Performed By: #### L 100.0100, L501.6901, L500.4050, L501.9985, L506.1001 #### [facility] [address] [place], [address] Vitamin D,25 Hydroxyon 02-02 Vitamin D 25-OH 53.6 ng/mL Normal 30-100 [facility] Comment on above: Result Comment: Dunia min D Status Deficiency: <20 ng/mL (50nmol/L) Insufficiency: 20-30 ng/mL (50-75 nmol/L) Sufficiency: 30-100 ng/mL (75-250 nmol/L) Toxicity: >100 ng/mL (>250 nmol/L) Performed By: #### L 100.0100, L501.6901, L500.4050, L501.9985, L506.1001 #### [facility] [address] [place], [address] Internal Medicine Office Vis itoglynn 01-26-2025 Internal Medicine Office Visit [facility] [address] [place] [address] [place] [address] OFFICE VISIT Date of Service: 01/27/25 MR#: [id number] Acct: [id number] Name: DEYSI HAGAN Rep #: [id number] : 1980 Provider: Dr. Adele harley MD Age/Sex: 44/F Location: [facility] Status: Signed Intake Vital Signs 07/12/19 14:57 01/27/25 08:08 Height 5 ft 3 in 5 ft 3 in Weight: 111 lb BMI 19.6 BP 114/60 Blood Pressure Location Lt brachial Position Sitting Respiration 18 Pulse 72 Pulse Source Monitor Temp 97.3 F L Temp Source Temporal Pulse Oximetry (%) 97 Oxygen Delivery Method room air Intake Visit Reasons: [employer] WORK[employer]. 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 EST CARE-PPW SENT Is patient in pain?: No Allergies No Known Allergies Allergy (Verified 01/27/25 08:09) Medications ???Medication ???Instructions ???Recorded ???Confirmed ???Type fluoxetine 20 mg capsule 60 mg PO DAILY 01/27/25 01/27/25 [facility] Medical History (Updated 01/27/25 @ 08:15 by [...] No current occupational status: employed current occupation: [employer] current occupational exposures/hazards: No Smoking Status: Never [...] you feel safe at home: Yes Questionnaire PQH-9 BMS Over the last 2 weeks, how [...] and colleagues, with an educational cole from [employer]. RENAN-7 BMS RENAN-7 Feeling nervous, anxious, or [...] and colleagues, with an educational cole from [employer]. HPI HPI Chief Complaint: NP. JAVID LANDON-PPW SENT Details: DEYSI HAGAN, is a 44 [...] reports s (more content not included)... Normal [facility] Breast Limited Unilateralon 11-11-2024 Breast Limited Unilateral [facility] [address] [facility] [place], [place] [address] Breast Limited Unilateral MR#: [id number] Acct: [id number] Name: DEYSI HAGAN Rep #: [id number] : 1980 F 44 From: Valente rendon MD PCP: Dr. Nicko Hatch MD Status: [facility] Study: Breast Limited Unilateral Date of Exam: Exam# [id number] Ordering Dr: Nicko Hatch MD ADDENDUM by Dr. Valente Soares MD on 11/18/24 at 1752 Addendum for BI-RADS category. BI-RADS category 1. Reading Location: [id number] 11/18/24 1752 Date cc: Dr. Nicko Hatch [...] seen. Follow-up code: Routine Follow-up Reading Location: [place] [address] CC: Dr. Nicko Hatch MD Treasury Representative: Signed Normal [facility] Breast imaging reportOrdered By: Valente Soares on 11-11-2024 Study report [facility] Imaging Services [address] [place], [place] [id number] DIAG MAMM W/CAD, UNILAT MR#: [id number] Acct: [id number] Name: DEYSI HAGAN Rep #: [id number] : 1980 F 44 From: Kevin Soares MD PCP: Dr. Nicko Hatch MD Status: REG [facility] Study:DIAG MAMM W/CAD, UNILAT Date of Exam: 11/11/24 Exam# [id number] Ordering Dr: Nicko Hatch MD EXAM: DIAG [...] be mailed to the patient. Reading Location: [facility] CC: Dr. Nicko Hatch MD ~ Treasury Representative: Signed [facility] DIAG MAMM W/CAD, UNILATon DIAG MAMM W/CAD, UNILAT [facility] Imaging Services [address] [place] [address] DIAG MAMM W/CAD, UNILAT MR#: [id number] Acct: [id number] Name: DEYSI HAGAN Rep #: [id number] : 1980 F 44 From: Valente rendon MD PCP: Dr. Nicko Hatch MD Status: REG CL Study: DIAG MAMM W/CAD, UNILAT Date of Exam: 11/11/24 Exam# [id number] Ordering Dr: Nicko Hatch MD EXAM: DIAG [...] be mailed to the patient. Reading Location: [place] [address] CC: Dr. Nicko Hatch MD Treasury Representative: Signed Normal [facility] Breast imaging reportOrdered By: Alissa Cohen on 11-04-2024 Study report [facility] Imaging Services [address] [place] [address] SCREENING MAMM (CAD), BILAT MR#: [id number] Acct: [id number] Name: DEYSI HAGAN Rep #: [id number] : 1980 F 44 From: Jorge Barnett MD PCP: Dr. Nicko Hatch MD Status: REG [facility] Study:SCREENING MAMM (CAD), BILAT Date of Exa m: 11/04/24 Exam# [id number] Ordering Dr: Nicko Hatch MD EXAM: SCREENING [...] be mailed to the patient. Reading Location: [id number] CC: Dr. Nicko Hatch MD ~ Treasury Representative: Signed [facility] SCREENING MAMM (CAD), BILATo n 11-04-2024 SCREENING MAMM (CAD), [facility] Imaging Services [address] [place], [place] [address] SCREENING MAMM (CAD), BILAT MR#: [id number] Acct: [id number] Name: DEYSI HAGAN Rep #: [id number] : 1980 F 44 From: Alissa Peters i, MD PCP: Dr. Nicko Hatch MD Status: [facility] Study: SCREENING MAMM (CAD), BILAT Date of Exam: 10/17 Exam# [id number] Ordering Dr: Nicko Hatch MD EXAM: SCREENING [...] be mailed to the patient. Reading Location: [id number] CC: Dr. Nicko Hatch MD Treasury Representative: Signed Normal [facility] Basophil percentageOrdered B y: Nicko Hatch on 07-23-2023 Chloride [Moles/Vol] 101 mmol/L 98-107 [facility] Cholesterol [Mass/Vol] 175 mg/dL <200 [facility] Comment on above: <200 mg/dL Desirable 200-240 mg/dL Borderline >240 mg/dL High Risk Glucose [Mass/Vol] 84 mg/dL 74-106 [facility] Potassium [Moles/Vol] 4.0 mmol/L 3.5-5.1 [facility] Sodium [Moles/Vol] 135 mmol/L 136-145 [facility] Triglyceride [Mass/Vol] 41 mg/dL <199 [facility] Comment on above: The drugs N-Acetylcy steine and Metamizole may falsely depress this assay.Serum Triglycerides Reference Interval Normal <150 mg/dL Borderline high 150 - 199 mg/dL High 200 - 499 mg/dL Very High > or = 500 mg/dL Laboratory - Chemistry and C hemistry - challengeOrdered By: Nicko Hatch on 07-23-2023 Cholesterol in HDL [Mass/Vol] 72 mg/dL >40 [facility] Comment on above: The drugs N-Acetylcy steine and Metamizole may falsely depress this assay. Reference Range HDL <40 mg/dL Low HDL Cholesterol HDL >or= 60 mg/dL High HDL Cholesterol Cholesterol in LDL [Mass/Vol] 95 mg/dL 0-130 [facility] CO2 [Moles/Vol] 30.0 mmol/L 21.0-32.0 [facility] Urea nitrogen/Creatinine [Mass ratio] 35.5 mg/mg 10-20 [facility] No Panel InformationOrdered By: Nicko Hatch on 07-23-2023 Estimated GFR (MDRD) Amer 141 mL/min >60 [facility] Comment on above: GFR Calc Estimated GFR (MDRD) Non-Af Amer 117 mL/min >60 [facility] Comment on above: Non- GFR Calc Follicle Stimulating Hormone 9.4 mIU/mL [facility] Comment on above: NORMAL REFERENCE RAN GES FEMALE FOLLICULAR 2.3 - 12.6 mIU/mL MID-CYCLE PEAK 5.2 - 17.5 mIU/mL LUTEAL 1.7 - 12.9 mIU/mL POST-MENOPAUSAL ON MHT 5.9 - 72.8 mIU/mL NOT ON MHT 12.7 - 132.2 mlU/mL MALE 0.7 - 10.8 mIU/mL Luteinizing Hormone 47.2 mIU/mL [facility] Comment on above: NORMAL REFERENCE RAN GES FEMALE FOLLICULAR 1.9 - 26.2 mIU/mL MID-CYCLE PEAK 22.8 - 76.1 mIU/mL LUTEAL 0.6 - 16.6 mIU/mL POST-MENOPAUSAL ON MHT 1.1 - 52.4 mIU/mL NOT ON MHT 8.6 - 61.8 mIU/mL MALE 1.2 - 10.6 mIU/mL VLDL Cholesterol 8 mg/dL 5-40 [facility] Serum or plasma calcium myron urement (mass/volume)Ordered By: Nicko Hatch on 07-23-2023 Calcium [Mass/Vol] 9.1 mg/dL 8.5-10.1 [facility] Serum or plasma creatinine m easurement (mass/volume)Ordered By: Nicko Hatch on 07-23-2023 Creatinine [Mass/Vol] 0.59 mg/dL 0.55-1.02 [facility] Comment on above: The validity of the calculated GFR & GFRAA in patients over 70 years has not been determined. Clinical correlation is essential. Serum or plasma urea nitroge n measurement (mass/volume)Ordered By: Nicko Hatch on 07-23-2023 Urea nitrogen [Mass/Vol] 21 mg/dL 7-18 [facility] Thin prep Papanicolaou smear with manual screeningOrdered By: Nicko Hatch on 07-23-2023 Thin prep Papanicolaou smear with manual screening 4 5-15 [facility] Basophil percentageon 2021 Chloride [Moles/Vol] 103 mmol/L 98-107 [facility] Work Phone: Cholesterol [Mass/Vol] 180 mg/dL <200 [facility] Work Phone: Comment on above: <200 mg/dL Desirable 200-240 mg/dL Borderline >240 mg/dL High Risk Glucose [Mass/Vol] 89 mg/dL 74-106 [facility] Work Phone: Potassium [Moles/Vol] 3.7 mmol/L 3.5-5.1 [facility] Work Phone: Sodium [Moles/Vol] 138 mmol/L 136-145 [facility] Work Phone: Triglyceride [Mass/Vol] 41 mg/dL [facility] Work Phone: Comment on above: The drugs N-Acetylcy steine and Metamizole may falsely depress this assay.Serum Triglycerides Reference Interval Normal <150 mg/dL Borderline high 150 - 199 mg/dL High 200 - 499 mg/dL Very High > or = 500 mg/dL Laboratory - Chemistry and C hemistry - challengeon 11-23-2021 CO2 [Moles/Vol] 30.0 mmol/L 21.0-32.0 [facility] Work Phone: Urea nitrogen/Creatinine [Mass ratio] 33.0 mg/mg 10-20 [facility] Work Phone: No Panel Informationon 11-23 Estimated GFR (MDRD) Amer 118 mL/min >60 [facility] Work Phone: Comment on above: GFR Calc Estimated GFR (MDRD) Non-Af Amer 97 mL/min >60 [facility] Work Phone: Comment on above: Non- GFR Calc Vitamin D 25-Hydroxy 50.5 ng/mL [facility] Work Phone: Comment on above: Vitamin D 25(OH) Sta tus Range Deficiency <20 ng/mL (50nmol/L) Insufficiency 20 - 30 ng/mL (50 - 75 nmol/L) Sufficiency 30 - 100 ng/mL (75 - 250 nmol/L) Toxicity >100 ng/mL (>250 nmol/L) Serum or plasma calcium myron urement (mass/volume)on 11-23-2021 Calcium [Mass/Vol] 8.9 mg/dL 8.5-10.1 [facility] Work Phone: Serum or plasma cholesterol in HDL measurement (mass/volume)on 11-23-2021 Cholesterol in HDL [Mass/Vol] 61 mg/dL [facility] Work Phone: Comment on above: The drugs N-Acetylcy steine and Metamizole may falsely depress this assay. Reference Range HDL <40 mg/dL Low HDL Cholesterol HDL >or= 60 mg/dL High HDL Cholesterol Serum or plasma cholesterol in VLDL measurement (mass/volume)on 11-23-2021 Cholesterol in VLDL [Mass/Vol] 8 mg/dL 5-40 [facility] Work Phone: Serum or plasma creatinine m easurement (mass/volume)on 11-23-2021 Creatinine [Mass/Vol] 0.70 mg/dL 0.55-1.02 [facility] Work Phone: Comment on above: The validity of the calculated GFR & GFRAA in patients over 70 years has not been determined. Clinical correlation is essential. Serum or plasma low density lipoprotein (LDL) cholesterol measurement (mass/volume)on 11-23-2021 Cholesterol in LDL [Mass/Vol] 111 mg/dL 0-130 [facility] Work Phone: Serum or plasma urea nitroge n measurement (mass/volume)on 11-23-2021 Urea nitrogen [Mass/Vol] 23 mg/dL 7-18 [facility] Work Phone: Thin prep Papanicolaou smear with manual screeningon 11-23-2021 Thin prep Papanicolaou smear with manual screening 5 5-15 [facility] Work Phone: MRI Up Ext Joint w/ Contrast Righton 07-08-2019 MRI Up Ext Joint w/ Contrast Right Patient Name: DEYSI HAGAN SELECT [facility] [id number] MRI Exam Date/Time 07/08/2019 13:42:56 EST Exam MRI Up Ext Joint w/ Contrast Right Ordering Physician MD RUIZ, SURI Pineda Accession Number [id number] CPT4 Codes 68217 () Reason For Exam sprain of right [...] Transcribed Date and Time: 07/08/2019 3:18 Normal [facility] RF Arthrogram Aspir Inj Abrahan Jt Righton 07-08-2019 RF Arthrogram Aspir Inj Abrahan Jt Right Patient Name: DEYSI HAGAN Fluoroscopy Exam Date/Time 07/08/2019 13:01:26 EST Exam RF Arthrogram Aspir Inj Abrahan Jt Right Ordering Physician MD MELCHOR DEREK J Accession Number [id number] [facility] Codes 54113 (), 23371 (RF FLUORO GUIDANCE NEEDLE PLACEMENT), 66532 (RF INJ WRIST ARTHRO RT) Reason For [...] Transcribed Date and Time: 07/08/2019 1:05 Normal [facility] CR Wrist Complete 3 Views Lilliam torres 06-26-2019 CR Wrist Complete 3 Views Right Patient Name: DEYSI HAGAN Diagnostic Radiology Exam Date/Time 06/26/2019 10:55:00 EST Exam CR Wrist Complete 3 Views Right Ordering Physician MD RUIZ, SURI Pineda Accession Number [id number] CPT4 Codes 81408 () Reason For Exam rt wrist pain [...] HARLAN Transcribed Date and Time: 06/26/2019 3:05 [facility] Vital Signs Date Time Vital Sign Value Performing Clinician Jl palomino 01-27-2025 08:08-0400 Body height 160.[address] Nicko Hatch MD Work Phone: [facility] 01-27-2025 08:08-0400 Body mass index (BMI) [Ratio] 19.6 kg/m2 Dr. Nicko Hatch MD Work Phone: [facility] 01-27-2025 08:08-0400 Body temperature 97.3 [degF] Dr. Nicko Hatch MD Work Phone: [facility] 01-27-2025 08:08-0400 Body weight 50.[address] Nicko Hatch MD Work Phone: [facility] 01-27-2025 08:08-0400 Diastolic blood pressure 60 mm[Hg] Dr. Nicko Hatch MD Work Phone: [facility] 01-27-2025 08:08-0400 Heart rate 72 /min Dr. Nicko Hatch MD Work Phone: [facility] 01-27-2025 08:08-0400 Respiratory rate 18 /min Dr. Nicko Hatch MD Work Phone: [facility] 01-27-2025 08:08-0400 SaO2% (BldA) [Mass fraction] 97 % Dr. Nicko Hatch MD Work Phone: [facility] 01-27-2025 08:08-0400 Systolic blood pressure 114 mm[Hg] Dr. Nicko Hatch MD Work Phone: [facility] Encounters Encounter Date Encounter Type Care Provider Facility Start: 02-04-2025 ambulatory [facility] Facility :[facility] Start: 02-02-2025 ambulatory [facility] Facility :[facility] Start: 01-27-2025 End: 01-27-[address] Adele Clements MD -[facility] Work Phone: Start: 01-27-2025 End: 01-27-[address] Nicko Hatch MD Work Phone: [facility] Start: 11-11-2024 End: 11-11-[address] Nicko Hatch MD Work Phone: [facility] Work Phone: Start: 11-11-2024 End: 11-11-[address] Nicko Hatch MD -[facility] Work Phone: Start: 11-11-2024 End: 11-11-2024 ambulatory Nicko Hatch Facility:[facility] Start: 11-04-2024 End: 11-04-[address] Nicko Hatch MD Work Phone: [facility] Work Phone: Start: 11-04-2024 End: 11-04-[address] Nicko Hatch MD -[facility] Work Phone: Start: 11-04-2024 End: 11-04-2024 ambulatory Nicko Hatch Facility:[facility] Start: 07-23-2023 End: 07-23-2023 ambulatory [facility] Work Phone: Start: 07-23-2023 End: 07-23-2023 Patient encounter procedure [facility] Start: 11-23-2021 End: 11-23-2021 Patient encounter procedure [facility] Procedures Date Procedure Procedure Detail Performing Clinician Start: 11-11-[address] Nicko lawson MD Work Phone: Start: 11-11-[address] Nicko Hatch MD Work Phone: Start: 11-04-2024 Screening mammograph y of bilateral breasts Dr. Nicko Hatch MD Work Phone: Plan of Treatment Date Care Activity Detail Author Start: 02-05-2017 End: 02-05-2017 Appointment Appointment [facility] kirill Work Phone: Estrogen [Mass/volum e] in Serum or Plasma [facility] Immunizations Immunization Date Immunization Notes Care Provider Fa cility 07-07-2021 Covid (Moderna) Dr. Nicko singh MD Work Phone: [facility] 09-21-2020 Covid ([employer]) Dr. Nicko Hatch MD Work Phone: [facility] 06-06-2018 tetanus toxoid, redu yair diphtheria toxoid, and acellular pertussis vaccine, adsorbed Dr. Nicko Hatch MD Work Phone: [facility] Payers Date Payer Category Payer Self-pay [id number] 2024 Unknown [id number] 2013 Unknown [id number] Unknown [id number] Unknown [employer] DO NOT USE [id number] Unknown [id number] Unknown [id number] Unknown [id number] Unknown [id number] Unknown [id number] Social History Date Type Detail Facility Start: 07-12-2019 End: 07-12-2019 Tobacco smoking status UTIS Unknown if ever smoked [facility] Start: 1980 Sex Assigned At Female [facility] Start: 07-12-2019 End: 01-27-2025 Tobacco smoking status NHIS Never smoked tobacco (finding) [facility] Radiology Diagnostic study note 11-11-2024 Note Date & Type Note Facility 11-11-2024 Radiology Diagnostic study note [facility] Imaging Services [address] [place] [address] Breast Limited Unilateral MR#: [id number] Acct: [id number] Name: DEYSI HAGAN Rep #: [id number] : 1980 F 44 From: Kevin Soares MD PCP: Dr. Nicko Hatch MD Status: DEMETRI GALVIN Study:Breast Limited Unilateral Date of Exam: 11/11/24 Exam# [id number] Ordering Dr: Nicko Hatch MD PROCEDURE: BREAST [...] seen. Follow-up code: Routine Follow-up Reading Location: [place] [address] CC: Dr. Nicko Hatch MD ~ Treasury Representative: Signed [facility] Evaluation note Note Date & Type Note Facility Evaluation note No assessment information availa ble [facility] Work Phone: Evaluation note Note Date & Type Note Facility Evaluation note Diagnosis Onset Date Resolution Encounter for screening for malignant neoplasm of colon noneactive January 27 8:03am Establishing care with new doctor, encounter for noneactive January 27 8:03am [facility][1] Services Work Phone: Reason for referral (narrative) Note Date & Type Note Facility Reason for referral (narrative) No reason for referral information available [facility] Work Phone: Summary Purpose Family History No Family History Records Found Relationship Condition Age at Onset Recorded Date/T josephine father Hypertension Unknown mother Hypertension Unknown Advance Directives No Advanced Directives Records Found Advance Directive Response Recorded Date/ Time Living Will No July 12 5:11pm Power of Caddy Packer No July 12, 2019 5:11pm Advance Directive Response Recorded Date/ Time Living Will No July 12 4:11pm Power of Caddy Packer No July 12, 2019 4:11pm Chief Complaint and Reason for Visit Chief Complaint Admit Date SCREENING November 04, 2024 3:04p m ABNORMAL MAMM November 11, 2024 8:13a m Chief Complaint Admit Date SCREENING November 04, 2024 3:04p m ABNORMAL MAMM November 11, 2024 8:13a m [employer]. [facility] - PPW SENT January 27 8:03am Reason for Visit Admit Date Encounter for screening for malignant ne oplasm of colon January 27, 2025 8:03am Establishing care with new doctorgaetano for January 27, 2025 8:03am Additional Source Comments INFORMATION SOURCE (unrecogn ized section and content) DATE CREATED AUTHOR 08/28/2019 [employer] DATE CREATED AUTHOR AUTHOR'S ORGANIZ ATION 09/01/2019 [facility] [employer] DATE CREATED AUTHOR AUTHOR'S ORGANIZ ATION 02/03/2025 [facility] Goals (unrecognized section and content) Goals may [...] BE BASED ON THE PRIMARY CLINICAL RECORDS. [employer] provides no warranty or guarantee of the accuracy or completeness of information in this document.
== END | disposition home or self-care (01) ==
LOC: OPBD 06:52
PROVIDERS: PCP Internal Medicine; Referring Provider Internal Medicine; Visit Provider Internal Medicine
DX: M81.0 Age-related osteoporosis without current pathological fracture (principal)
CPT/HCPCS: 77080

== ENCOUNTER 2025-02-08 19:59 | Emergency (ER) | payer MEDICAID, SELFPAY ==
[2025-02-08 20:01] VITALS: BP 156/102; PULSE 80; RESP 19; TEMP 36.6; O2SAT 100
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
--- OUTSIDE RECORDS SUMMARY | 2025-02-08 20:44 | XMS RPT_ITS | CCD ---
Author Organization [facility] Care Team Providers Care Cab Station Attendant Name Role Phone Janay Linda Unavailable Unavailable Mamie HUERTA, Dr. Maharaj Primary Care Provider [phone] Mamie HUERTA, Dr. Maharaj Attending Provider [phone] Mamie HUERTA, Dr. Maharaj Referring Provider Starr HUERTA, Dr. Angulo Attending Provider Starr HUERTA, Dr. Angulo Primary Care Provider Starr HUERTA, Dr. Angulo Referring Provider Nicko Hatch Primary Care Unavailable Hatch, Nicko Attending Unavailable Hatch, Nicko Referring Unavailable Hatch, Nicko Primary Care Unavailable Hatch, Nicko Attending Unavailable Hatch, Nicko Referring Unavailable StarrAdele flower Primary Care Unavailable Adele Clements Attending Unavailable Starr, Adele Referring Unavailable Hatch, Nicko Referring Unavailable Hatch, Nicko Primary Care Unavailable Hinckley, Adele Attending Unavailable HinckleyFrancie floweria Referring Unavailable StarrAdele flower Primary Care Unavailable Adele Clements Attending Unavailable Medications Current Medications Medication Drug Class(es) Dates Sig (Normalized) Sig (Original) FLUoxetine 20 mg oral capsule (8 sources) Serotonin Reuptake Inhibitor Start: 01-27-2025 take [...] Date Documented Da te Episodic/Chronic Administrative/social admission (2 sources) First encounter by subject; Translations: [Persons encountering health services in other specified circumstances] 01-27-2025 Episodic Anxiety disorders (4 sources) Mixed anxiety and depressive disorder; Translations: [Anxiety disorder, unspecified] Onset: 02-04-2025 01-27-2025 Chronic Nonmalignant breast conditions (1 source) Other specified disorders of breast; Translations: [Other specified disorders of breast] Onset: 11-15-2024 Episodic Osteoporosis (2 sources) Osteoporosis; Translations: [Age-related osteoporosis without current pathological fracture] Onset: 02-04-2025 01-27-2025 Chronic Other endocrine disorders (1 source) Hypoglycemia; Translations: [Hypoglycemia, unspecified] 01-27-2025 Chronic Other screening for suspected conditions (not mental disorders or infectious disease) (3 sources) Patient encounter status; Translations: [Encounter for screening for malignant neoplasm of colon] Onset: 11-11-2024 01-27-2025 Episodic Residual codes; unclassified (1 source) Medication refused; Translations: [Immunization not carried out because of patient refusal] 01-27-2025 Episodic Unclassified (1 source) No current problems or disability 02-02-2017 Unclassified (1 source) Encounter for screening for malignant neoplasm of colon Unclassified (2 sources) Z12.11 - Encounter for screening for malignant neoplasm of colon Results Test Name Value Interpretation Reference Range Facility C-Peptideon 02-04-2025 C PEPTIDE 1.5 ng/mL Normal 1.1-4.4 [facility] Comment on above: Result Comment: C-Pe ptide reference interval is for fasting patients. Performed By: #### L 506.1001, L3100.7750, L100.0100, L501.6901, L3410.9992, L3300.3500, L500.4050, L501.9985, L3400.1350 #### [facility] [address] [place], [address] Dexa Bone Density Studyon Dexa Bone Density Study [facility] Imaging Services [address] [place] [address] Dexa Bone Density Study MR#: [id number] Acct: [id number] Name: DEYSI HAGAN Rep #: [id number] : 1980 F 44 From: Valente rendon MD PCP: Dr. Adele Clements MD Status: REG CLI Study: Dexa Bone Density Study Date of Exam: 02/04/25 Exam# [id number] Ordering Dr: Adele Clements MD PROCEDURE: DEXA BONE DENSITY STUDY 02/04/2025 REASON FOR EXAM: OSTEOPOROSIS F, age 44 y/o . Postmenopausal. TECHNIQUE: DEXA BONE DENSITY STUDY COMPARISON: Prior study dated January 13, 2015. FINDINGS: BMD and T-SCORES Lumbar spine: 0.810 g/cm2, T-score -2.2 Levels: L1 through L4 Change from prior: Loss of 7.3%. Left femoral neck: 0.642 g/cm2, T-score -1.9 Femoral neck comparison data not recommended for monitoring change. Left total hip: 0.724 g/cm2, T-score -1.8 Change from prior: Improvement of 14.8%. Right femoral neck: 0.607 g/cm2, T-score -2.2 Femoral neck comparison data not recommended for monitoring change. Right total hip: 0.683 g/cm2, T-score -2.1 Change from prior: Improvement of 14.9%. The World Health Organization has defined the following categories based on bone density: Normal bone density: T-score equal to or greater than -1.0 Osteopenia: T-score between -1.0 and -2.5 Osteoporosis: T-score equal to or less than -2.5 The patient does meet the pharmacological treatment recommendations for prevention of osteoporosis. BD/Dexa Bone Density Study IMPRESSION: OSTEOPENIA. Recommend follow-up as clinically warranted. Reading Location: [id number] CC: Dr. Adele Clements MD Cnc Manager: Signed Normal [facility] Insulin Levelon 02-04-2025 INSULIN,FASTING 4.5 uIU/mL Normal 2.6-24.9 [facility] Comment on above: Result Comment: Perf ormed at: [address] [id number] English Adjunct Faculty: Nahum Chandra PhD, Phone: [phone] Performed at: [address] [id number] English Adjunct Faculty: Paul Leo MD, Phone: [phone] Performed By: #### L 506.1001, L3100.7750, L100.0100, L501.6901, L3410.9992, L3300.3500, L500.4050, L501.9985, L3400.1350 #### [facility] [address] [place], [address] Insulin Like Growth Factoron 02-04-2025 SOMATOMEDIN C 165 ng/mL Normal 70-225 [facility] Comment on above: Order Comment: N Performed By: #### L 506.1001, L3100.7750, L100.0100, L501.6901, L3410.9992, L3300.3500, L500.4050, L501.9985, L3400.1350 #### [facility] [address] [place], [address] L3410.9992on 02-04-2025 [facility] COM[facility] Normal . [facility] Comment on above: Order Comment: UPDAT ED SPECIMEN REQUIREMENTS, SERUM/FRZ. [id number], PROINSULIN [id number] proinsulin SERUM/FRZ Result Comment: Test Ordered: [id number] Proinsulin Proinsulin 3.0 pmol/L Reference Range: 0.0-10.0 Performed at: [address] [id number] English Adjunct Faculty: Paul Leo MD, Phone: [phone] Performed at: [address] [id number] English Adjunct Faculty: Nahum Chandra PhD, Phone: [phone] Performed By: #### L 506.1001, L3100.7750, L100.0100, L501.6901, L3410.9992, L3300.3500, L500.4050, L501.9985, L3400.1350 #### [facility] [address] [place], [place], [id number] Absolute lymphocyte countOrd ered By: Adele Clements on 02-02-2025 Lymphocytes Auto (Unsp spec) [#/Vol] 1.12 10*3/uL 0.83-4.51 [facility] Absolute neutrophil countOrd ered By: Adelescott Clements on 02-02-2025 Neutrophils (Bld) [#/Vol] 4.4 10*3/uL 2.0-7.7 [facility] Anion gap in Serum or Plasma Ordered By: Adele Clements on 02-02-2025 Anion gap [Moles/Vol] 11 mmol/L 5-15 [facility] Automated lymphocyte count a s percentage of total leukocytesOrdered By: Adele Clements on 02-02-2025 Lymphocytes/100 WBC Auto (Unsp spec) 17.3 % Low 19-41 [facility] BUN/creatinine ratioOrdered By: Adele Clements on 02-02-2025 Urea nitrogen/Creatinine [Mass ratio] 14.1 mg/mg 10-20 [facility] Basophil percentageOrdered B y: Adele Clements on 02-02-2025 Basophils/100 WBC (Bld) 0.6 % 0-1 [facility] Beta-Hydroxbytyrateon 2024 BETA-HYDROXYBUT 0.1 mmol/L Normal 0.0-0.3 [facility] Comment on above: Performed By: #### L 506.1001, L3100.7750, L100.0100, L501.6901, L3410.9992, L3300.3500, L500.4050, L501.9985, L3400.1350 #### [facility] [address] [place], [place], [id number] Beta-hydroxybutyrateOrdered By: Adele Clements on 08-18-2025 Beta hydroxybutyrate [Mass/Vol] 0.1 mmol/L 0.0-0.3 [facility] Bilirubin, totalOrdered By: Adele Clements on 02-02-2025 Bilirubin [Mass/Vol] 0.49 mg/dL 0.00-1.30 [facility] CBC W/Diff, Automatedon 01-16 Absolute Lymph 1.12 X10 3/uL Normal 0.83-4.51 [facility] Comment on above: Performed By: #### L 506.1001, L3100.7750, L100.0100, L501.6901, L3410.9992, L3300.3500, L500.4050, L501.9985, L3400.1350 #### [facility] [address] [place], [address] Absolute Neut 4.4 X10 3/uL Normal 2.0-7.7 [facility] Comment on above: Performed By: #### L 506.1001, L3100.7750, L100.0100, L501.6901, L3410.9992, L3300.3500, L500.4050, L501.9985, L3400.1350 #### [facility] [address] [place], [address] Basophils/100 WBC (Bld) 0.6 % Normal 0-1 [facility] Comment on above: Performed By: #### L 506.1001, L3100.7750, L100.0100, L501.6901, L3410.9992, L3300.3500, L500.4050, L501.9985, L3400.1350 #### [facility] [address] [place], [address] Eosinophils/100 WBC (Bld) 6.2 % High 0-5 [facility] Comment on above: Performed By: #### L 506.1001, L3100.7750, L100.0100, L501.6901, L3410.9992, L3300.3500, L500.4050, L501.9985, L3400.1350 #### [facility] [address] [place], [place], [id number] ([phone]) Erythrocyte distribution width (RBC) [Ratio] 13.8 % Normal 11.6-14.6 [facility] Comment on above: Performed By: #### L 506.1001, L3100.7750, L100.0100, L501.6901, L3410.9992, L3300.3500, L500.4050, L501.9985, L3400.1350 #### [facility] [address] [place], [address] Hematocrit (Bld) [Volume fraction] 39.4 % Normal 37-47 [facility] Comment on above: Performed By: #### L 506.1001, L3100.7750, L100.0100, L501.6901, L3410.9992, L3300.3500, L500.4050, L501.9985, L3400.1350 #### [facility] [address] [place], [place], [id number] Hemoglobin (Bld) [Mass/Vol] 13.2 g/dL Normal 12.0-15.0 [facility] Comment on above: Performed By: #### L 506.1001, L3100.7750, L100.0100, L501.6901, L3410.9992, L3300.3500, L500.4050, L501.9985, L3400.1350 #### [facility] [address] [place], [address] IG% 0.200 Normal 0.0-0.9 [facility] Comment on above: Result Comment: IG% - Immature Granulocytes (promyelocytes, myelocytes and metamyelocytes) > 1% indicates that a LEFT SHIFT is Present. Performed By: #### L 506.1001, L3100.7750, L100.0100, L501.6901, L3410.9992, L3300.3500, L500.4050, L501.9985, L3400.1350 #### [facility] [address] [place], [address] Lymphocytes/100 WBC (Bld) 17.3 % Low 19-41 [facility] Comment on above: Performed By: #### L 506.1001, L3100.7750, L100.0100, L501.6901, L3410.9992, L3300.3500, L500.4050, L501.9985, L3400.1350 #### [facility] [address] [place], [address] MCH (RBC) [Entitic mass] 32.4 pg High 27.0-32.0 [facility] Comment on above: Performed By: #### L 506.1001, L3100.7750, L100.0100, L501.6901, L3410.9992, L3300.3500, L500.4050, L501.9985, L3400.1350 #### [facility] [address] [place], [address] MCHC (RBC) [Mass/Vol] 33.5 g/dL Normal 32-36 [facility] Comment on above: Performed By: #### L 506.1001, L3100.7750, L100.0100, L501.6901, L3410.9992, L3300.3500, L500.4050, L501.9985, L3400.1350 #### [facility] [address] [place], [address] MCV (RBC) [Entitic vol] 96.6 fL Normal 81-99 [facility] Comment on above: Performed By: #### L 506.1001, L3100.7750, L100.0100, L501.6901, L3410.9992, L3300.3500, L500.4050, L501.9985, L3400.1350 #### [facility] [address] [place], [address] Monocytes/100 WBC (Bld) 7.9 % Normal 0-10 [facility] Comment on above: Performed By: #### L 506.1001, L3100.7750, L100.0100, L501.6901, L3410.9992, L3300.3500, L500.4050, L501.9985, L3400.1350 #### [facility] [address] [place], [address] Neutrophils/100 WBC (Bld) 67.8 % Normal 47-70 [facility] Comment on above: Performed By: #### L 506.1001, L3100.7750, L100.0100, L501.6901, L3410.9992, L3300.3500, L500.4050, L501.9985, L3400.1350 #### [facility] [address] [place], [address] Nucleated RBC (Bld) [#/Vol] 0 10*3/uL Normal 0-5 [facility] Comment on above: Performed By: #### L 506.1001, L3100.7750, L100.0100, L501.6901, L3410.9992, L3300.3500, L500.4050, L501.9985, L3400.1350 #### [facility] [address] [place], [address] Platelet mean volume (Bld) [Entitic vol] 11.0 fL Normal 6.2-12.0 [facility] Comment on above: Performed By: #### L 506.1001, L3100.7750, L100.0100, L501.6901, L3410.9992, L3300.3500, L500.4050, L501.9985, L3400.1350 #### [facility] [address] [place], [address] Platelets (Bld) [#/Vol] 291 10*3/uL Normal 150-450 [facility] Comment on above: Performed By: #### L 506.1001, L3100.7750, L100.0100, L501.6901, L3410.9992, L3300.3500, L500.4050, L501.9985, L3400.1350 #### [facility] [address] [place], [address] RBC (Bld) [#/Vol] 4.08 10*6/uL Low 4.2-5.4 [facility] Comment on above: Performed By: #### L 506.1001, L3100.7750, L100.0100, L501.6901, L3410.9992, L3300.3500, L500.4050, L501.9985, L3400.1350 #### [facility] [address] [place], [address] RDW SD 49.1 fl High 35.1-43.9 [facility] Comment on above: Performed By: #### L 506.1001, L3100.7750, L100.0100, L501.6901, L3410.9992, L3300.3500, L500.4050, L501.9985, L3400.1350 #### [facility] [address] [place], [address] WBC (Bld) [#/Vol] 6.5 10*3/uL Normal 4.4-11.0 [facility] Comment on above: Performed By: #### L 506.1001, L3100.7750, L100.0100, L501.6901, L3410.9992, L3300.3500, L500.4050, L501.9985, L3400.1350 #### [facility] [address] [place], [address] Carbon dioxide, total [Moles /volume] in Central venous bloodOrdered By: Adele Clements on 02-02-2025 CO2 [Moles/Vol] 25.7 mmol/L 21.0-32.0 [facility] Chloride assayOrdered By: Paul Clements on 02-02-2025 Chloride [Moles/Vol] 104 mmol/L 98-108 [facility] Comprehensive Metabolic Prof ilon 02-02-2025 Albumin [Mass/Vol] 4.2 g/dL Normal 3.5-5.0 [facility] Comment on above: Performed By: #### L 506.1001, L3100.7750, L100.0100, L501.6901, L3410.9992, L3300.3500, L500.4050, L501.9985, L3400.1350 #### [facility] [address] [place], [address] Albumin/Globulin [Mass ratio] 1.7 {ratio} Normal 0.9-2.4 [facility] Comment on above: Performed By: #### L 506.1001, L3100.7750, L100.0100, L501.6901, L3410.9992, L3300.3500, L500.4050, L501.9985, L3400.1350 #### [facility] [address] [place], [address] ALK PHOS 77 U/L Normal 35-104 [facility] Comment on above: Performed By: #### L 506.1001, L3100.7750, L100.0100, L501.6901, L3410.9992, L3300.3500, L500.4050, L501.9985, L3400.1350 #### [facility] [address] [place], [address] ALT [Catalytic activity/Vol] 21 U/L Normal <=34 [facility] Comment on above: Performed By: #### L 506.1001, L3100.7750, L100.0100, L501.6901, L3410.9992, L3300.3500, L500.4050, L501.9985, L3400.1350 #### [facility] [address] [place], [place], [id number] AST [Catalytic activity/Vol] 30 U/L Normal <=31 [facility] Comment on above: Performed By: #### L 506.1001, L3100.7750, L100.0100, L501.6901, L3410.9992, L3300.3500, L500.4050, L501.9985, L3400.1350 #### [facility] [address] [place], [place], [id number] Bilirubin [Mass/Vol] 0.49 mg/dL Normal 0.00-1.30 [facility] Comment on above: Performed By: #### L 506.1001, L3100.7750, L100.0100, L501.6901, L3410.9992, L3300.3500, L500.4050, L501.9985, L3400.1350 #### [facility] [address] [place], [place], [id number] BUN/CRE 14.1 RATIO Normal 10-20 [facility] Comment on above: Performed By: #### L 506.1001, L3100.7750, L100.0100, L501.6901, L3410.9992, L3300.3500, L500.4050, L501.9985, L3400.1350 #### [facility] [address] [place], [address] Calcium [Mass/Vol] 9.4 mg/dL Normal 7.6-11.0 [facility] Comment on above: Performed By: #### L 506.1001, L3100.7750, L100.0100, L501.6901, L3410.9992, L3300.3500, L500.4050, L501.9985, L3400.1350 #### [facility] [address] [place], [address] Chloride [Moles/Vol] 104 mmol/L Normal 98-108 [facility] Comment on above: Performed By: #### L 506.1001, L3100.7750, L100.0100, L501.6901, L3410.9992, L3300.3500, L500.4050, L501.9985, L3400.1350 #### [facility] [address] [place], [address] CO2 [Moles/Vol] 25.7 mmol/L Normal 21.0-32.0 [facility] Comment on above: Performed By: #### L 506.1001, L3100.7750, L100.0100, L501.6901, L3410.9992, L3300.3500, L500.4050, L501.9985, L3400.1350 #### [facility] [address] [place], [address] Creatinine [Mass/Vol] 0.68 mg/dL Low 0.70-1.20 [facility] Comment on above: Performed By: #### L 506.1001, L3100.7750, L100.0100, L501.6901, L3410.9992, L3300.3500, L500.4050, L501.9985, L3400.1350 #### [facility] [address] [place], [address] GAP 11 Normal 5-15 [facility] Comment on above: Performed By: #### L 506.1001, L3100.7750, L100.0100, L501.6901, L3410.9992, L3300.3500, L500.4050, L501.9985, L3400.1350 #### [facility] [address] [place], [address] GFR/1.73 sq M.predicted among non-blacks MDRD (S/P/Bld) [Vol rate/Area] 109 mL/min/{1.73_m2} Normal >60 [facility] Comment on above: Result Comment: mL/m in/1.73m2 CKD-EPI Creatinine Equation (2020) Performed By: #### L 506.1001, L3100.7750, L100.0100, L501.6901, L3410.9992, L3300.3500, L500.4050, L501.9985, L3400.1350 #### [facility] [address] [place], [address] Globulin (S) [Mass/Vol] 2.4 g/dL Normal 2.2-4.2 [facility] Comment on above: Performed By: #### L 506.1001, L3100.7750, L100.0100, L501.6901, L3410.9992, L3300.3500, L500.4050, L501.9985, L3400.1350 #### [facility] [address] [place], [address] Glucose [Mass/Vol] 85 mg/dL Normal 70-99 [facility] Comment on above: Performed By: #### L 506.1001, L3100.7750, L100.0100, L501.6901, L3410.9992, L3300.3500, L500.4050, L501.9985, L3400.1350 #### [facility] [address] [place], [address] Potassium [Moles/Vol] 4.1 mmol/L Normal 3.3-5.1 [facility] Comment on above: Performed By: #### L 506.1001, L3100.7750, L100.0100, L501.6901, L3410.9992, L3300.3500, L500.4050, L501.9985, L3400.1350 #### [facility] [address] [place], [address] Sodium [Moles/Vol] 141 mmol/L Normal 133-145 [facility] Comment on above: Performed By: #### L 506.1001, L3100.7750, L100.0100, L501.6901, L3410.9992, L3300.3500, L500.4050, L501.9985, L3400.1350 #### [facility] [address] [place], [address] T PROT 6.6 g/dL Normal 5.9-8.4 [facility] Comment on above: Performed By: #### L 506.1001, L3100.7750, L100.0100, L501.6901, L3410.9992, L3300.3500, L500.4050, L501.9985, L3400.1350 #### [facility] [address] [place], [address] Urea nitrogen [Mass/Vol] 10 mg/dL Normal 4-19 [facility] Comment on above: Performed By: #### L 506.1001, L3100.7750, L100.0100, L501.6901, L3410.9992, L3300.3500, L500.4050, L501.9985, L3400.1350 #### [facility] [address] [place], [address] Eosinophil percentageOrdered By: Adele Hinckley on 02-02-2025 Eosinophils/100 WBC (Bld) 6.2 % High 0-5 [facility] Erythrocyte distribution wid th ratioOrdered By: Adele Starr on 02-02-2025 Erythrocyte distribution width (RBC) [Ratio] 13.8 % 11.6-14.6 [facility] Erythrocyte distribution wid th standard deviationOrdered By: Adele Starr on 02-02-2025 Erythrocyte distribution width (RBC) [Ratio] 49.1 fl High 35.1-43.9 [facility] Glomerular filtration rate ( GFR) estimation/1.73 sq m using serum, plasma, or whole bOrdered By: Adele Clements on 02-02-2025 GFR/1.73 sq M.predicted among non-blacks MDRD (S/P/Bld) [Vol rate/Area] 109 mL/min/{1.73_m2} >60 [facility] Comment on above: mL/min/1.73m2 CKD-EP I Creatinine Equation (2020) Hematocrit Auto (Bld) [Volum e fraction]Ordered By: Adele Clements on 02-02-2025 Hematocrit (Bld) [Volume fraction] 39.4 % 37-47 [facility] Hemoglobin A1con 02-02-2025 HbA1c (Bld) [Mass fraction] 4.9 % Normal <=5.6 [facility] Comment on above: Result Comment: Norm al < 5.7 % Prediabetic 5.7 - 6.4 % Diabetic >or= 6.5 % Please note range changes. Performed By: #### L 506.1001, L3100.7750, L100.0100, L501.6901, L3410.9992, L3300.3500, L500.4050, L501.9985, L3400.1350 #### [facility] [place], [address] Hemoglobin A1c percentageOrd ered By: Adele Clements on 02-02-2025 HbA1c (Bld) [Mass fraction] 4.9 % <5.7 [facility] Comment on above: Normal < 5.7 % Predi abetic 5.7 - 6.4 % Diabetic >or= 6.5 % Please note range changes. Hemoglobin measurementOrdere d By: Adele Clements on 02-02-2025 Hemoglobin (Bld) [Mass/Vol] 13.2 g/dL 12.0-15.0 [facility] Immature granulocytes/100 WB C Auto (Bld)Ordered By: Adele Clements on 02-02-2025 Immature granulocytes/100 WBC (Bld) 0.200 % 0.0-0.9 [facility] Comment on above: IG% - Immature Granu locytes (promyelocytes, myelocytes and metamyelocytes) > 1% indicates that a LEFT SHIFT is Present. Insulin-like growth factor ( IGF) measurementOrdered By: Adele Clements on 02-02-2025 Insulin-like growth factor [Moles/Vol] 165 ng/mL 70-225 [facility] Laboratory - Chemistry and C hemistry - challengeOrdered By: Adele Clements on 02-02-2025 AST [Catalytic activity/Vol] 30 U/L <32 [facility] MCV (mean corpuscular volume ) determinationOrdered By: Adele Clements on 02-02-2025 MCV (RBC) [Entitic vol] 96.6 fL 81-99 [facility] Mean corpuscular hemoglobin (MCH) determinationOrdered By: Adele Clements on 02-02-2025 MCH (RBC) [Entitic mass] 32.4 pg High 27.0-32.0 [facility] Mean corpuscular hemoglobin concentration (MCHC) determinationOrdered By: Adele Clements on 02-02-2025 MCHC (RBC) [Mass/Vol] 33.5 g/dL 32-36 [facility] Mean platelet volume determi nationOrdered By: Adele Clements on 02-02-2025 Platelet mean volume (Bld) [Entitic vol] 11.0 fL 6.2-12.0 [facility] Monocyte percentageOrdered B y: Adele Clements on 02-02-2025 Monocytes/100 WBC (Bld) 7.9 % 0-10 [facility] Neutrophil percentageOrdered By: Adele Clements on 02-02-2025 Neutrophils/100 WBC (Bld) 67.8 % 47-70 [facility] Nucleated red blood cell per centageOrdered By: Adele Clements on 02-02-2025 Nucleated RBC/100 WBC (Bld) [Ratio] 0 % 0-5 [facility] Platelet countOrdered By: Paul Clements on 02-02-2025 Platelets (Bld) [#/Vol] 291 10*3/uL 150-450 [facility] Potassium measurement (mass/ volume)Ordered By: Adele Clements on 02-02-2025 Potassium (Unsp spec) [Mass/Vol] 4.1 mmol/L 3.3-5.1 [facility] RBC Auto (Bld) [#/Vol]Ordere d By: Adele Clements on 02-02-2025 RBC (Bld) [#/Vol] 4.08 10*6/uL Low 4.2-5.4 [facility] Serum creatinine measurement (mass/volume)Ordered By: Adele Clements on 02-02-2025 Creatinine [Mass/Vol] 0.68 mg/dL Low 0.70-1.20 [facility] Serum globulin measurementOr dered By: Adele Clements on 02-02-2025 Globulin (S) [Mass/Vol] 2.4 g/dL 2.2-4.2 [facility] Serum glucose measurement (m ass/volume)Ordered By: Adele Clements on 02-02-2025 Glucose [Mass/Vol] 85 mg/dL 70-99 [facility] Serum or plasma alanine sales otransferase (ALT) measurementOrdered By: Adele Clements on 02-02-2025 ALT [Catalytic activity/Vol] 21 U/L <35 [facility] Serum or plasma albumin myron urement (mass/volume)Ordered By: Adele Clements on 02-02-2025 Albumin [Mass/Vol] 4.2 g/dL 3.5-5.0 [facility] Serum or plasma albumin/glob ulin mass ratioOrdered By: Adele Clements on 02-02-2025 Albumin/Globulin [Mass ratio] 1.7 {ratio} 0.9-2.4 [facility] Serum or plasma alkaline alisia sphatase measurementOrdered By: Adele Clements on 02-02-2025 ALP [Catalytic activity/Vol] 77 U/L 35-104 [facility] Serum or plasma calcium myron urement (mass/volume)Ordered By: Adele Clements on 02-02-2025 Calcium [Mass/Vol] 9.4 mg/dL 7.6-11.0 [facility] Serum or plasma insulin myron urement (mass/volume)Ordered By: Adele Clements on 02-02-2025 Insulin [Mass/Vol] 4.5 uIU/mL 2.6-24.9 [facility] Comment on above: Performed at: [facility] [address] [address] [id number] Director: Nahum Chandra PhD, Phone: [phone] at: - [facility] [id number] Director: Paul Leo MD, Phone: [phone] Serum or plasma urea nitroge n measurement (mass/volume)Ordered By: Adele Clements on 02-02-2025 Urea nitrogen [Mass/Vol] 10 mg/dL 4-19 [facility] Sodium levelOrdered By: Francie Clements on 02-02-2025 Sodium [Moles/Vol] 141 mmol/L 133-145 [facility] Total proteinOrdered By: Dylon Clements on 02-02-2025 Protein [Mass/Vol] 6.6 g/dL 5.9-8.4 [facility] Vitamin D,25 Hydroxyon 02-02 Vitamin D 25-OH 53.6 ng/mL Normal 30-100 [facility] Comment on above: Result Comment: Dunia min D Status Deficiency: <20 ng/mL (50nmol/L) Insufficiency: 20-30 ng/mL (50-75 nmol/L) Sufficiency: 30-100 ng/mL (75-250 nmol/L) Toxicity: >100 ng/mL (>250 nmol/L) Performed By: #### L 506.1001, L3100.7750, L100.0100, L501.6901, L3410.9992, L3300.3500, L500.4050, L501.9985, L3400.1350 #### [facility] [address] [place], [address] White blood cell (WBC) count Ordered By: Adele Clements on 02-02-2025 WBC (Bld) [#/Vol] 6.5 10*3/uL 4.4-11.0 [facility] Internal Medicine Office Vis lori 01-26-2025 Internal Medicine Office Visit [facility] [address] [place] [address] [place] [address] OFFICE VISIT Date of Service: 01/27/25 MR#: [id number] Acct: [id number] Name: DEYSI HAGAN Rep #: [id number] : 1980 Provider: Dr. 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 Toni Coley, Edgardo Lind and colleagues, with an educational cole from [employer]. RENAN-7 BMS RENAN-7 Feeling nervous, anxious, or [...] 0 Source: Developed by Drs. Toni Coley, Edgardo Lind and colleagues, with an educational cole from [employer]. 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 Normal [facility] Breast Limited Unilateralon 11-11-2024 Breast Limited Unilateral [facility] Imaging Services [address] [place], [place] [id number] Breast Limited Unilateral MR#: [id number] Acct: [id number] Name: DEYSI HAGAN Rep #: [id number] : 1980 F 44 From: Valente rendon MD PCP: Dr. Nicko Hatch MD Status: [facility] Study: Breast Limited Unilateral Date of Exam: Exam# [id number] Ordering Dr: Nicko Hatch MD ADDENDUM by Dr. Valente Soares MD on 11/18/24 at 1752 Addendum for BI-RADS category. BI-RADS category 1. Reading Location: [facility] 11/18/24 175 Date cc: Dr. Nicko Hatch MD * [...] seen. Follow-up code: Routine Follow-up Reading Location: [place] [address] CC: Dr. Nicko Hatch MD Cnc Manager: Signed Normal [facility] Breast imaging reportOrdered By: Valente Soares on 11-11-2024 Study report [facility] Imaging Services [address] [place], [place] [address] DIAG MAMM W/CAD, UNILAT MR#: [id number] Acct: [id number] Name: DEYSI HAGAN Rep #: [id number] : 1980 F 44 From: Kevin Soares MD PCP: Dr. Nicko Hatch MD Status: [facility]AL[facility] Study:DIAG MAMM W/CAD, UNILAT Date of Exam: 11/11/24 Exam# [id number] Ordering Dr: Nicko Hatch MD EXAM: DIAG [...] be mailed to the patient. Reading Location: [facility] CC: Dr. Nicko Hatch MD ~ Cnc Manager: Signed [facility] DIAG MAMM W/CAD, UNILATon DIAG MAMM W/CAD, UNILAT [facility] Imaging Services [address] [place], [place] [address] DIAG MAMM W/CAD, UNILAT MR#: [id number] Acct: [id number] Name: DEYSI HAGAN Rep #: [id number] : 1980 F 44 From: Valente rendon MD PCP: Dr. Nicko Hatch MD Status: [facility] Study: DIAG MAMM W/CAD, UNILAT Date of Exam: 11/11/24 Exam# [id number] Ordering Dr: Nicko Hatch MD EXAM: DIAG [...] be mailed to the patient. Reading Location: [facility] CC: Dr. Nicko Hatch MD Cnc Manager: Signed Normal [facility] Breast imaging reportOrdered By: Alissa Cohen on 11-04-2024 Study report [facility] Imaging Services [address] [place], [place] [id number] SCREENING MAMM (CAD), BILAT MR#: [id number] Acct: [id number] Name: DEYSI HAGAN Rep #: [id number] : 1980 F 44 From: Jorge Barnett MD PCP: Dr. Nicko Hatch MD Status: REG C LI Study:SCREENING MAMM (CAD), BILAT Date of Exa m: 11/04/24 Exam# [id number] Ordering Dr: Nicko Hatch MD EXAM: SCREENING [...] be mailed to the patient. Reading Location: [facility] CC: Dr. Nicko Hatch MD ~ Cnc Manager: Signed [facility] SCREENING MAMM (CAD), BILATo n 11-04-2024 SCREENING MAMM (CAD), BILAT [facility] Imaging Services [address] [place] [id number] SCREENING MAMM (CAD), BILAT MR#: [id number] Acct: [id number] Name: DEYSI HAGAN Rep #: [id number] : 1980 F 44 From: Alissa Peters i, MD PCP: Dr. Nicko Hatch MD Status: REG CLI Study: SCREENING MAMM (CAD), BILAT Date of Exam: 10/17 Exam# [id number] Ordering Dr: Nicko Hatch MD EXAM: SCREENING [...] be mailed to the patient. Reading Location: [facility] CC: Dr. Nicko Hatch MD Cnc Manager: Signed Normal [facility] Basophil percentageOrdered B y: Nicko Hatch on 07-23-2023 Chloride [Moles/Vol] 101 mmol/L 98-107 [facility] Cholesterol [Mass/Vol] 175 mg/dL <200 [facility] Comment on above: <200 mg/dL Desirable 200-240 mg/dL Borderline >240 mg/dL High Risk Glucose [Mass/Vol] 84 mg/dL 74-106 [facility] Potassium [Moles/Vol] 4.0 mmol/L 3.5-5.1 [facility] Sodium [Moles/Vol] 135 mmol/L 136-145 [facility] Triglyceride [Mass/Vol] 41 mg/dL <199 [facility] Comment on above: The drugs N-Acetylcy steine and Metamizole may falsely depress this assay.Serum Triglycerides Reference Interval Normal <150 mg/dL Borderline high 150 - 199 mg/dL High 200 - 499 mg/dL Very High > or = 500 mg/dL Laboratory - Chemistry and C hemistry - challengeOrdered By: Nicko Hatch on 07-23-2023 Cholesterol in HDL [Mass/Vol] 72 mg/dL >40 [facility] Comment on above: The drugs N-Acetylcy steine and Metamizole may falsely depress this assay. Reference Range HDL <40 mg/dL Low HDL Cholesterol HDL >or= 60 mg/dL High HDL Cholesterol Cholesterol in LDL [Mass/Vol] 95 mg/dL 0-130 [facility] CO2 [Moles/Vol] 30.0 mmol/L 21.0-32.0 [facility] Urea nitrogen/Creatinine [Mass ratio] 35.5 mg/mg 10-20 [facility] No Panel InformationOrdered By: Nicko Hatch on 07-23-2023 Estimated GFR (MDRD) Amer 141 mL/min >60 [facility] Comment on above: GFR Calc Estimated GFR (MDRD) Non-Af Amer 117 mL/min >60 [facility] Comment on above: Non- GFR Calc Follicle Stimulating Hormone 9.4 mIU/mL [facility] Comment on above: NORMAL REFERENCE [facility]AN [facility] FEMALE FOLLICULAR 2.3 - 12.6 mIU/mL MID-CYCLE PEAK 5.2 - 17.5 mIU/mL LUTEAL 1.7 - 12.9 mIU/mL POST-MENOPAUSAL ON MHT 5.9 - 72.8 mIU/mL NOT ON MHT 12.7 - 132.2 mlU/mL MALE 0.7 - 10.8 mIU/mL Luteinizing Hormone 47.2 mIU/mL [facility] Comment on above: NORMAL REFERENCE RAN [facility] FEMALE FOLLICULAR 1.9 - 26.2 mIU/mL MID-CYCLE PEAK 22.8 - 76.1 mIU/mL LUTEAL 0.6 - 16.6 mIU/mL POST-MENOPAUSAL ON MHT 1.1 - 52.4 mIU/mL NOT ON MHT 8.6 - 61.8 mIU/mL MALE 1.2 - 10.6 mIU/mL VLDL Cholesterol 8 mg/dL 5-40 [facility] Serum or plasma calcium myron urement (mass/volume)Ordered By: Nicko Hatch on 07-23-2023 Calcium [Mass/Vol] 9.1 mg/dL 8.5-10.1 [facility] Serum or plasma creatinine m easurement (mass/volume)Ordered By: Nicko Hatch on 07-23-2023 Creatinine [Mass/Vol] 0.59 mg/dL 0.55-1.02 [facility] Comment on above: The validity of the calculated GFR & GFRAA in patients over 70 years has not been determined. Clinical correlation is essential. Serum or plasma urea nitroge n measurement (mass/volume)Ordered By: Nicko Hatch on 07-23-2023 Urea nitrogen [Mass/Vol] 21 mg/dL 7-18 [facility] Thin prep Papanicolaou smear with manual screeningOrdered By: Nicko Hatch on 07-23-2023 Thin prep Papanicolaou smear with manual screening 4 5-15 [facility] Basophil percentageon 2021 Chloride [Moles/Vol] 103 mmol/L 98-107 [facility] Work Phone: Cholesterol [Mass/Vol] 180 mg/dL <200 [facility] Work Phone: Comment on above: <200 mg/dL Desirable 200-240 mg/dL Borderline >240 mg/dL High Risk Glucose [Mass/Vol] 89 mg/dL 74-106 [facility] Work Phone: Potassium [Moles/Vol] 3.7 mmol/L 3.5-5.1 [facility] Work Phone: Sodium [Moles/Vol] 138 mmol/L 136-145 [facility] Work Phone: Triglyceride [Mass/Vol] 41 mg/dL [facility] Work Phone: Comment on above: The drugs N-Acetylcy steine and Metamizole may falsely depress this assay.Serum Triglycerides Reference Interval Normal <150 mg/dL Borderline high 150 - 199 mg/dL High 200 - 499 mg/dL Very High > or = 500 mg/dL Laboratory - Chemistry and C hemistry - challengeon 11-23-2021 CO2 [Moles/Vol] 30.0 mmol/L 21.0-32.0 [facility] Work Phone: Urea nitrogen/Creatinine [Mass ratio] 33.0 mg/mg 10-20 [facility] Work Phone: No Panel Informationon 11-23 Estimated GFR (MDRD) Amer 118 mL/min >60 [facility] Work Phone: Comment on above: GFR Calc Estimated GFR (MDRD) Non-Af Amer 97 mL/min >60 [facility] Work Phone: Comment on above: Non- GFR Calc Vitamin D 25-Hydroxy 50.5 ng/mL [facility] Work Phone: Comment on above: Vitamin D 25(OH) Sta tus Range Deficiency <20 ng/mL (50nmol/L) Insufficiency 20 - 30 ng/mL (50 - 75 nmol/L) Sufficiency 30 - 100 ng/mL (75 - 250 nmol/L) Toxicity >100 ng/mL (>250 nmol/L) Serum or plasma calcium myron urement (mass/volume)on 11-23-2021 Calcium [Mass/Vol] 8.9 mg/dL 8.5-10.1 [facility] Work Phone: Serum or plasma cholesterol in HDL measurement (mass/volume)on 11-23-2021 Cholesterol in HDL [Mass/Vol] 61 mg/dL [facility] Work Phone: Comment on above: The drugs N-Acetylcy steine and Metamizole may falsely depress this assay. Reference Range HDL <40 mg/dL Low HDL Cholesterol HDL >or= 60 mg/dL High HDL Cholesterol Serum or plasma cholesterol in VLDL measurement (mass/volume)on 11-23-2021 Cholesterol in VLDL [Mass/Vol] 8 mg/dL 5-40 [facility] Work Phone: Serum or plasma creatinine m easurement (mass/volume)on 11-23-2021 Creatinine [Mass/Vol] 0.70 mg/dL 0.55-1.02 [facility] Work Phone: Comment on above: The validity of the calculated GFR & GFRAA in patients over 70 years has not been determined. Clinical correlation is essential. Serum or plasma low density lipoprotein (LDL) cholesterol measurement (mass/volume)on 11-23-2021 Cholesterol in LDL [Mass/Vol] 111 mg/dL 0-130 [facility] Work Phone: Serum or plasma urea nitroge n measurement (mass/volume)on 11-23-2021 Urea nitrogen [Mass/Vol] 23 mg/dL 7-18 [facility] Work Phone: Thin prep Papanicolaou smear with manual screeningon 11-23-2021 Thin prep Papanicolaou smear with manual screening 5 5-15 [facility] Work Phone: MRI Up Ext Joint w/ Contrast Righton 07-08-2019 MRI Up Ext Joint w/ Contrast Right Patient Name: DEYSI HAGAN MRI Exam Date/Time 07/08/2019 13:42:56 EST Exam MRI Up Ext Joint w/ Contrast Right Ordering Physician MD RUIZ, SURI Pineda Accession Number [id number] CPT4 Codes 56060 () Reason For Exam sprain of right [...] Transcribed Date and Time: 07/08/2019 3:18 Normal [facility] RF Arthrogram Aspir Inj Abrahan Jt Righton 07-08-2019 RF Arthrogram Aspir Inj Abrahan Jt Right Patient Name: DEYSI HAGAN Fluoroscopy Exam Date/Time 07/08/2019 13:01:26 EST Exam RF Arthrogram Aspir Inj Abrahan Jt Right Ordering Physician MD RUIZ, SURI Pineda Accession Number [id number] CTP4 Codes 72037 (), 25766 (RF FLUORO GUIDANCE NEEDLE PLACEMENT), 61823 (RF INJ WRIST ARTHRO RT) Reason For [...] Transcribed Date and Time: 07/08/2019 1:05 [facility] Wrist Complete 3 Views Lilliam torres 06-26-2019 CR Wrist Complete 3 Views Right Patient Name: DEYSI HAGAN Diagnostic Radiology Exam Date/Time 06/26/2019 10:55:00 EST Exam CR Wrist Complete 3 Views Right Ordering Physician MD RUIZ, SURI Pineda Accession Number [id number] CPT4 Codes 40233 () Reason For Exam rt wrist pain [...] HARLAN Transcribed Date and Time: 06/26/2019 3:05 Normal [facility] Vital Signs Date Time Vital Sign Value Performing Clinician Jl palomino 02-04-2025 06:54-0400 Body height 160.[address] Nicko Hatch MD Work Phone: [facility] 01-27-2025 08:08-0400 Body height 160.[address] Nicko Hatch MD Work Phone: [facility] 01-27-2025 08:08-0400 Body mass index (BMI) [Ratio] 19.6 kg/m2 Dr. Nicko Hatch MD Work Phone: [facility] 01-27-2025 08:08-0400 Body temperature 97.3 [degF] Dr. Nicko Hatch MD Work Phone: [facility] 01-27-2025 08:08-0400 Body weight 50.[address] Nicko Hatch MD Work Phone: [facility] 01-27-2025 08:08-0400 Diastolic blood pressure 60 mm[Hg] Dr. Nicko Hatch MD Work Phone: [facility] 01-27-2025 08:08-0400 Heart rate 72 /min Dr. Nicko Hatch MD Work Phone: [facility] 01-27-2025 08:08-0400 Respiratory rate 18 /min Dr. Nicko Hatch MD Work Phone: [facility] 01-27-2025 08:08-0400 SaO2% (BldA) [Mass fraction] 97 % Dr. Nicko Hatch MD Work Phone: [facility] 01-27-2025 08:08-0400 Systolic blood pressure 114 mm[Hg] Dr. Nicko Hatch MD Work Phone: [facility] Encounters Encounter Date Encounter Type Care Provider Facility Start: 02-04-[address] Adele Clements MD -Outpatient Bone Densitometry Work Phone: Start: 02-04-2025 ambulatory Adele Clements Facility :[facility] Start: 02-02-2025 End: 02-02-[address] Nicko Hatch MD Work Phone: [facility] Start: 02-02-2025 End: 02-02-[address] Adele Clements MD -[facility] Work Phone: Start: 02-02-2025 End: 02-02-2025 ambulatory Adele Clements Facility:[facility] Start: 01-27-2025 End: 01-27-[address] Adele Clements MD -[facility] Work Phone: Start: 01-27-2025 End: 01-27-[address] Nicko Hatch MD Work Phone: -[facility] Start: 11-11-2024 End: 11-11-[address] Nicko Hatch MD Work Phone: [facility] Work Phone: Start: 11-11-2024 End: 11-11-[address] Nicko Hatch MD -Outpatient Breast Imaging Work Phone: Start: 11-11-2024 End: 11-11-2024 ambulatory Nicko Hatch Facility:[facility] Start: 11-04-2024 End: 11-04-[address] Nicko Hatch MD Work Phone: [facility] Work Phone: Start: 11-04-2024 End: 11-04-[address] Nicko Hatch MD -Outpatient Breast Imaging Work Phone: Start: 11-04-2024 End: 11-04-2024 ambulatory Nicko Hatch Facility:[facility] Start: 07-23-2023 End: 07-23-2023 ambulatory [facility] Work Phone: Start: 07-23-2023 End: 07-23-2023 Patient encounter procedure [facility] Start: 11-23-2021 End: 11-23-2021 Patient encounter procedure [facility] Procedures Date Procedure Procedure Detail Performing Clinician Start: 02-04-2025 Dual energy X-ray absorptiometry Dr. Nicko Hatch MD Work Phone: Start: 02-02-2025 Insulin C-peptide measurement Dr. Nicko Hatch MD Work Phone: Comment on above: C-Peptide reference interval is for fasting patients. Start: 02-02-[address] Nicko lawson MD Work Phone: Comment on above: Test Ordered: [id number] ProinsulinProinsulin 3.0 pmol/L Reference Range: 0.0-10.0Performed at: BN - [facility] [address] [id number] Director: Paul Leo MD, Phone: [phone] at: - [facility] [address] [id number] Director: Nahum Chandra PhD, Phone: [phone] Start: 02-02-2025 Vitamin D, 25-hydrox y measurement Dr. Nicko Hatch MD Work Phone: Comment on above: Vitamin D StatusDefi ciency: <20 ng/mL (50nmol/L)Insufficiency: 20-30 ng/mL (50-75 nmol/L)Sufficiency: 30-100 ng/mL (75-250 nmol/L)Toxicity: >100 ng/mL (>250 nmol/L) Start: 11-11-[address] Nicko lawson MD Work Phone: Start: 11-11-[address] Nicko Hatch MD Work Phone: Start: 11-04-2024 Screening mammograph y of bilateral breasts Dr. Nicko Hatch MD Work Phone: Plan of Treatment Date Care Activity Detail Author Start: 02-05-2017 End: 02-05-2017 Appointment Appointment [facility]irill Work Phone: Estrogen [Mass/volum e] in Serum or Plasma [facility] Immunizations Immunization Date Immunization Notes Care Provider Fa cility 07-07-2021 Covid (Moderna) Dr. Nicko singh MD Work Phone: [facility] 09-21-2020 Covid ([employer]) Dr. Nicko Hatch MD Work Phone: [facility] 06-06-2018 tetanus toxoid, redu yair diphtheria toxoid, and acellular pertussis vaccine, adsorbed Dr. Nicko Hatch MD Work Phone: [facility] Payers Date Payer Category Payer Self-pay [id number] 2024 Unknown [id number] 2013 Unknown [id number] Unknown [id number] Unknown [employer] DO NOT USE [id number] Unknown [id number] Unknown [id number] Unknown [id number] Unknown [id number] Unknown [id number] Unknown [id number] Social History Date Type Detail Facility Start: 07-12-2019 End: 07-12-2019 Tobacco smoking status NHIS Unknown if ever smoked [facility] Start: 1980 Sex Assigned At Female [facility] Start: 07-12-2019 End: 01-27-2025 Tobacco smoking status NHIS Never smoked tobacco (finding) [facility] Evaluation note 01-27-2025 Note Date & Type Note Facility 01-27-2025 Evaluation note Diagnosis Onset Date Resolution Anxiety and depression acute Au ghulam 2024 8:03am Immunization declined noneactive Aug ust 2024 8:03am Encounter for screening for malignant neoplasm of colon noneactive January 27 8:03am Establishing care with new doctor, encounter for noneactive January 27 8:03am Osteoporosis noneactive January 27, 2025 8:03am Hypoglycemia noneactive January 27, 2025 8:03am [facility] Work Phone: Radiology Diagnostic study note 11-11-2024 Note Date & Type Note Facility 11-11-2024 Radiology Diagnostic study note [facility] Imaging Services [address] [address] [place], [place] [address] Breast Limited Unilateral MR#: [id number] Acct: [id number] Name: DEYSI HAGAN Rep #: [id number] : 1980 F 44 From: Kevin Soares MD PCP: Dr. Nicko Hatch MD Status: REG C Study:Breast Limited Unilateral Date of Exam: 11/11/24 Exam# [id number] Ordering Dr: Nicko Hatch MD PROCEDURE: BREAST [...] seen. Follow-up code: Routine Follow-up Reading Location: [place] [address] CC: Dr. Nicko Hatch MD ~ Cnc Manager: Signed [facility] Evaluation note Note Date & Type Note Facility Evaluation note No assessment information availa ble [facility] Work Phone: Evaluation note Note Date & Type Note Facility Evaluation note Diagnosis Onset Date Resolution Encounter for screening for malignant neoplasm of colon noneactive January 27 8:03am Establishing care with new doctor, encounter for noneactive January 27 8:03am [facility] Work Phone: Reason for referral (narrative) Note Date & Type Note Facility Reason for referral (narrative) No reason for referral information available [facility] Work Phone: Summary Purpose Family History No Family History Records Found Relationship Condition Age at Onset Recorded Date/T josephine father Hypertension Unknown mother Hypertension Unknown Advance Directives No Advanced Directives Records Found Advance Directive Response Recorded Date/ Time Living Will No July 12 5:11pm Power of Billet Bed Operator No July 12, 2019 5:11pm Advance Directive Response Recorded Date/ Time Living Will No July 12 4:11pm Power of Billet Bed Operator No July 12, 2019 4:11pm Chief Complaint and Reason for Visit Chief Complaint Admit Date SCREENING November 04, 2024 3:04p m ABNORMAL MAMM November 11, 2024 8:13a m Chief Complaint Admit Date SCREENING November 04, 2024 3:04p m ABNORMAL MAMM November 11, 2024 8:13a m 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 EST CARE - PPW SENT January 27 8:03am EORDERS February 02, 2025 7: 12am osteoporosis February 04, 2025 6: 51am Reason for Visit Admit Date Anxiety and depression January 27, 2025 8:03am Immunization declined January 27, 2025 8:03am Encounter for screening for malignant ne oplasm of colon January 27, 2025 8:03am Establishing care with new doctorgaetano nter for January 27, 2025 8:03am Osteoporosis January 27, 2025 8: 03am Hypoglycemia January 27, 2025 8: 03am Additional Source Comments INFORMATION SOURCE (unrecogn ized section and content) DATE CREATED AUTHOR 08/28/2019 [facility] [employer] [facility] DATE CREATED AUTHOR AUTHOR'S ORGANIZ ATION 09/01/2019 [facility] [employer] [facility] DATE CREATED AUTHOR AUTHOR'S ORGANIZ ATION 02/05/2025 [facility] Goals (unrecognized section and content) Goals [...] January 27, 2025 End: January 27, 2025 Team Status: Active Member Role/Relationship Status Dates Dr. Adele Clements MD Primary Care Provider Active Team Status: Inactive Member Role/Relationship Status Dates Dr. Adele Clements MD Primary Care Provider Active Start: February 02, 2025 End: February 02, 2025 Dr. Adele Clements MD Attending Provider Active Start: February 02, 2025 End: February 02, 2025 Dr. Adele Clements MD Referring Provider Active Start: February 02, 2025 End: February 02, 2025 Team Status: Active Member Role/Relationship Status Dates Dr. Adele Clements MD Primary Care Provider Active Start: February 04, 2025 Dr. Adele Clements MD Attending Provider Active Start: February 04, 2025 Dr. Adele Clements MD Referring Provider Active Start: February 04, 2025 FOR RECORDS PERTAINING TO PATIENTS WHO [...] BE BASED ON THE PRIMARY CLINICAL RECORDS. [facility] [employer] [facility]. provides no warranty or guarantee of the accuracy or completeness of information in this document.
[2025-02-08 20:48] VITALS: BP 126/89; PULSE 73; RESP 18; TEMP 37; O2SAT 100
== END 2025-02-08 20:49 | disposition home or self-care (01) ==
LOC: ED 20:42
PROVIDERS: Emergency Provider Emergency Medicine; PCP Internal Medicine; Visit Provider Emergency Medicine
DX: Z00.00 Encounter for general adult medical examination without abnormal findings (principal)
CPT/HCPCS: 99282